=== PATIENT | female | born 1985 | race African-American/Black ===

== ENCOUNTER → 2020-08-13 | Day surgery (SDC) | payer OTHER ==
[~2020-08-13] MED LIST: SODIUM CHLORIDE 1,000 ML IV ONE
[2020-08-13 17:39] VITALS: PULSE 65
[2020-08-13 17:41] VITALS: BP 116/77
[2020-08-13 17:44] VITALS: TEMP 98.5
[2020-08-13 18:21] LABS: POTASSIUM 3.6 mmol/L (3.5-5.1)
[2020-08-13 18:23] LABS: BLOOD UREA NITROGEN 10.6 mg/dL (7-18); MAGNESIUM 2.1 mg/dL (1.8-2.4)
[2020-08-13 18:26] LABS: CREATININE 0.6 mg/dL (0.55-1.3)
== END | disposition home or self-care (01) ==
LOC: JONCCHEMO 07:08
PROVIDERS: ATTEND Internal Medicine Hematology & Oncology
PROC: 3E0437Z Introduction of Electrolytic and Water Balance Substance into Central Vein, Percutaneous Approach (ICD-10-PCS; principal; 2020-08-13)
DX: C16.9 Malignant neoplasm of stomach, unspecified (principal); Z76.89 Persons encountering health services in other specified circumstances
CPT/HCPCS: 36415; 80048; 83735; 96360

== ENCOUNTER 2020-08-14 07:20 | Day surgery (SDC) | payer OTHER ==
[2020-08-14] MEDS ORDERED: TBO-FILGRASTIM 300 MCG/0.5 ML DISP.SYRINGE SQ ONE (10:00)
[2020-08-14 16:04] VITALS: BP 113/77; PULSE 65; TEMP 99
== END 2020-08-14 14:30 | disposition home or self-care (01) ==
LOC: JONCCHEMO 07:20
PROVIDERS: ATTEND Internal Medicine Hematology & Oncology
PROC: 3E0437Z Introduction of Electrolytic and Water Balance Substance into Central Vein, Percutaneous Approach (ICD-10-PCS; principal; 2020-08-14)
DX: C16.9 Malignant neoplasm of stomach, unspecified (principal); Z76.89 Persons encountering health services in other specified circumstances
CPT/HCPCS: 96360; J1447

== ENCOUNTER 2020-08-15 06:05 | Day surgery (SDC) | payer OTHER ==
[2020-08-15] MEDS ORDERED: TBO-FILGRASTIM 300 MCG/0.5 ML DISP.SYRINGE SQ ONE (10:00)
[2020-08-15 15:18] VITALS: BP 118/76; PULSE 58; TEMP 98.4
== END 2020-08-15 14:35 | disposition home or self-care (01) ==
LOC: JONCCHEMO 06:05
PROVIDERS: ATTEND Internal Medicine Hematology & Oncology
PROC: 3E013GC Introduction of Other Therapeutic Substance into Subcutaneous Tissue, Percutaneous Approach (ICD-10-PCS; principal; 2020-08-15)
DX: C16.9 Malignant neoplasm of stomach, unspecified (principal); Z76.89 Persons encountering health services in other specified circumstances
CPT/HCPCS: 96372; J1447

== ENCOUNTER 2020-08-16 07:19 | Day surgery (SDC) | payer OTHER ==
[2020-08-16] MEDS ORDERED: TBO-FILGRASTIM 300 MCG/0.5 ML DISP.SYRINGE SQ ONE (14:45)
[2020-08-16 15:00] VITALS: BP 124/76; PULSE 92; TEMP 99.2
== END 2020-08-16 14:55 | disposition home or self-care (01) ==
LOC: JONCCHEMO 07:19
PROVIDERS: ATTEND Internal Medicine Hematology & Oncology
PROC: 3E013GC Introduction of Other Therapeutic Substance into Subcutaneous Tissue, Percutaneous Approach (ICD-10-PCS; principal; 2020-08-16)
DX: C16.9 Malignant neoplasm of stomach, unspecified (principal); Z76.89 Persons encountering health services in other specified circumstances
CPT/HCPCS: 96372; J1447

== ENCOUNTER 2020-08-17 13:54 | Day surgery (SDC) | payer OTHER ==
[2020-08-17] MEDS ORDERED: TBO-FILGRASTIM 300 MCG/0.5 ML DISP.SYRINGE SQ ONE (14:00)
[2020-08-17 15:36] VITALS: BP 116/62; PULSE 89; TEMP 98.8
== END 2020-08-17 14:30 | disposition home or self-care (01) ==
LOC: JONCCHEMO 13:54 → J7W 13:54 → JONCCHEMO 14:30
PROVIDERS: ATTEND Internal Medicine Hematology & Oncology
PROC: 3E013GC Introduction of Other Therapeutic Substance into Subcutaneous Tissue, Percutaneous Approach (ICD-10-PCS; principal; 2020-08-17)
DX: C16.9 Malignant neoplasm of stomach, unspecified (principal); Z76.89 Persons encountering health services in other specified circumstances
CPT/HCPCS: 96372; J1447

== ENCOUNTER 2020-08-19 09:34 | Day surgery (SDC) | payer OTHER ==
[~2020-08-19 09:34] MED LIST changes: -SODIUM CHLORIDE 1,000 ML IV ONE; +TBO-FILGRASTIM 300 MCG/0.5 ML DISP.SYRINGE SQ ONE
[2020-08-19 14:15] LABS: BASO % 0.3 % (0-2.0); EOS % 0.5 % (0-4.5); HEMATOCRIT 36.5 % (32.4-45.2); HEMOGLOBIN 12.4 GM/dL (10.7-15.3); LYMPH % 22.4 % (8-40); MCH 30.2 pg (25.7-33.7); MEAN CELL VOLUME 88.8 fl (80-96); MEAN PLT VOLUME 8.7 fl (7.5-11.1); MONO % 21.1 % (3.8-10.2); NEUT % 55.7 % (42.8-82.8); PLATELET COUNT 259 K/MM3 (134-434); RBC 4.11 M/mm3 (3.60-5.2); RDW 13.4 % (11.6-15.6); WHITE BLOOD COUNT 8.6 K/mm3 (4.0-10.0)
[2020-08-19 14:29] LABS: POTASSIUM 3.6 mmol/L (3.5-5.1)
[2020-08-19 14:31] LABS: BLOOD UREA NITROGEN 11.1 mg/dL (7-18); CALCIUM 9.1 mg/dL (8.5-10.1)
[2020-08-19 14:34] LABS: CREATININE 0.8 mg/dL (0.55-1.3)
[2020-08-19 14:36] LABS: BILIRUBIN,TOTAL 0.2 mg/dL (0.2-1); TOT PROT 7.4 g/dl (6.4-8.2)
[2020-08-19 15:27] LABS: ANISOCYTOSIS 0; MACROCYTOSIS 0; PLATELET ESTIMATE NORMAL
[2020-08-19 18:36] VITALS: BP 113/79; PULSE 109; TEMP 98.8
== END 2020-08-19 14:00 | disposition home or self-care (01) ==
LOC: JONCCHEMO 09:34
PROVIDERS: ATTEND Internal Medicine Hematology & Oncology
PROC: 3E013GC Introduction of Other Therapeutic Substance into Subcutaneous Tissue, Percutaneous Approach (ICD-10-PCS; principal; 2020-08-19)
DX: C16.9 Malignant neoplasm of stomach, unspecified (principal); Z76.89 Persons encountering health services in other specified circumstances
CPT/HCPCS: 36415; 80053; 85025; 96372; J1447

== ENCOUNTER 2020-08-26 07:10 | Day surgery (SDC) | payer OTHER ==
[2020-08-26 09:53] LABS: BASO % 0.5 % (0-2.0); HEMATOCRIT 39.1 % (32.4-45.2); HEMOGLOBIN 13.1 GM/dL (10.7-15.3); LYMPH % 14.7 % (8-40); MCH 29.5 pg (25.7-33.7); MCHC 33.5 g/dl (32.0-36.0); MEAN CELL VOLUME 87.9 fl (80-96); MEAN PLT VOLUME 8.4 fl (7.5-11.1); MONO % 2.4 % (3.8-10.2); NEUT % 82.4 % (42.8-82.8); PLATELET COUNT 232 K/MM3 (134-434); RBC 4.45 M/mm3 (3.60-5.2); RDW 13.8 % (11.6-15.6); WHITE BLOOD COUNT 6.5 K/mm3 (4.0-10.0)
[2020-08-26] MEDS ORDERED: PALONOSETRON HCL 0.25 MG/5 ML VIAL IVPUSH ONE (10:00)
[2020-08-26] MEDS ORDERED: FOSAPREPITANT DIMEGLUMINE 150 MG in SODIUM CHLORIDE 150 ML IVPB ONE (10:00)
[2020-08-26] MEDS ORDERED: DEXAMETHASONE SODIUM PHOSPHATE 10 MG in SODIUM CHLORIDE 50 ML IVPB ONE (10:00)
[2020-08-26 10:02] LABS: ALBUMIN 3.9 g/dl (3.4-5.0); BLOOD UREA NITROGEN 17.6 mg/dL (7-18); CALCIUM 9.4 mg/dL (8.5-10.1); MAGNESIUM 2.5 mg/dL (1.8-2.4)
[2020-08-26 10:06] LABS: CREATININE 0.8 mg/dL (0.55-1.3)
[2020-08-26 10:07] LABS: TOT PROT 7.7 g/dl (6.4-8.2)
[2020-08-26 10:16] LABS: BILIRUBIN,TOTAL 0.2 mg/dL (0.2-1)
[2020-08-26] MEDS ORDERED: SODIUM CHLORIDE IV ONE (10:30)
[2020-08-26] MEDS ORDERED: DOCETAXEL IV ONE (10:30)
[2020-08-26] MEDS ORDERED: LEUCOVORIN IVPB ONE (11:30)
[2020-08-26] MEDS ORDERED: WATER IVPB ONE (11:30)
[2020-08-26] MEDS ORDERED: DEXTROSE 5% IVPB ONE (11:30)
[2020-08-26] MEDS ORDERED: SODIUM CHLORIDE 500 ML IV STA (11:34)
[2020-08-26] MEDS ORDERED: FLUOROURACIL 4,500 MG in SODIUM CHLORIDE 2 ML CP ONE (13:30)
[2020-08-26 14:54] VITALS: BP 111/74; PULSE 81; TEMP 99.4
== END 2020-08-26 16:33 | disposition home or self-care (01) ==
LOC: JONCCHEMO 07:10
PROVIDERS: ATTEND Internal Medicine Hematology & Oncology
DX: Z51.11 Encounter for antineoplastic chemotherapy (principal); C16.9 Malignant neoplasm of stomach, unspecified
CPT/HCPCS: 36415; 80053; 83735; 85025; 96361; 96366; 96367; 96375; 96413; 96415; 96417; G0498; J1453; J2469; J9171; J9263

== ENCOUNTER 2020-09-09 05:30 | Day surgery (SDC) | payer OTHER ==
[2020-09-09] MEDS ORDERED: FOSAPREPITANT DIMEGLUMINE 150 MG in SODIUM CHLORIDE 150 ML IVPB ONE (10:00)
[2020-09-09] MEDS ORDERED: DEXAMETHASONE SODIUM PHOSPHATE 10 MG in SODIUM CHLORIDE 50 ML IVPB ONE (10:00)
[2020-09-09] MEDS ORDERED: PALONOSETRON HCL 0.25 MG/5 ML VIAL IVPUSH ONE (10:00)
[2020-09-09] MEDS ORDERED: SODIUM CHLORIDE 500 ML IV ONE (10:00)
[2020-09-09 10:07] LABS: BASO % 0.4 % (0-2.0); EOS % 0.2 % (0-4.5); HEMATOCRIT 35.2 % (32.4-45.2); HEMOGLOBIN 11.8 GM/dL (10.7-15.3); LYMPH % 30.4 % (8-40); MCH 29.3 pg (25.7-33.7); MCHC 33.6 g/dl (32.0-36.0); MEAN CELL VOLUME 87.2 fl (80-96); MEAN PLT VOLUME 8.4 fl (7.5-11.1); MONO % 7.5 % (3.8-10.2); NEUT % 61.5 % (42.8-82.8); PLATELET COUNT 236 K/MM3 (134-434); RBC 4.04 M/mm3 (3.60-5.2); RDW 14.1 % (11.6-15.6); WHITE BLOOD COUNT 7.4 K/mm3 (4.0-10.0)
[2020-09-09 10:24] LABS: POTASSIUM 3.7 mmol/L (3.5-5.1)
[2020-09-09 10:27] LABS: ALBUMIN 3.8 g/dl (3.4-5.0); BLOOD UREA NITROGEN 11.2 mg/dL (7-18); MAGNESIUM 2.3 mg/dL (1.8-2.4)
[2020-09-09 10:30] LABS: CREATININE 0.8 mg/dL (0.55-1.3)
[2020-09-09] MEDS ORDERED: DOCETAXEL IV ONE (10:30)
[2020-09-09] MEDS ORDERED: SODIUM CHLORIDE IV ONE (10:30)
[2020-09-09 10:31] LABS: BILIRUBIN,TOTAL 0.2 mg/dL (0.2-1)
[2020-09-09 10:53] LABS: ANISOCYTOSIS 0; MACROCYTOSIS 0; PLATELET ESTIMATE NORMAL
[2020-09-09] MEDS ORDERED: WATER IVPB ONE (11:30)
[2020-09-09] MEDS ORDERED: DEXTROSE 5% IVPB ONE (11:30)
[2020-09-09] MEDS ORDERED: OXALIPLATIN 145 MG in DEXTROSE 5%-WATER - 500 ML IV ONE (11:30)
[2020-09-09] MEDS ORDERED: LEUCOVORIN IVPB ONE (11:30)
[2020-09-09] MEDS ORDERED: FLUOROURACIL CP ONE (13:30)
[2020-09-09] MEDS ORDERED: SODIUM CHLORIDE CP ONE (13:30)
[2020-09-09 16:20] VITALS: TEMP 99
[2020-09-09 16:22] VITALS: BP 111/73; PULSE 77
== END 2020-09-09 16:15 | disposition home or self-care (01) ==
LOC: JONCCHEMO 05:30
PROVIDERS: ATTEND Internal Medicine Hematology & Oncology
DX: Z51.11 Encounter for antineoplastic chemotherapy (principal); C16.9 Malignant neoplasm of stomach, unspecified
CPT/HCPCS: 36415; 80053; 83735; 85025; 96361; 96366; 96367; 96375; 96413; 96415; 96417; G0498; J1453; J2469; J9171; J9263

== ENCOUNTER 2020-09-23 06:28 | Day surgery (SDC) | payer OTHER ==
[2020-09-23] MEDS ORDERED: SODIUM CHLORIDE 500 ML IV ONE (09:00)
[2020-09-23 09:24] LABS: BASO % 0.5 % (0-2.0); HEMATOCRIT 34.7 % (32.4-45.2); HEMOGLOBIN 11.6 GM/dL (10.7-15.3); LYMPH % 16.8 % (8-40); MCH 29.1 pg (25.7-33.7); MCHC 33.4 g/dl (32.0-36.0); MEAN CELL VOLUME 87.1 fl (80-96); MEAN PLT VOLUME 7.7 fl (7.5-11.1); MONO % 7.2 % (3.8-10.2); NEUT % 75.5 % (42.8-82.8); PLATELET COUNT 232 K/MM3 (134-434); RBC 3.98 M/mm3 (3.60-5.2); WHITE BLOOD COUNT 4.5 K/mm3 (4.0-10.0)
[2020-09-23] MEDS ORDERED: FOSAPREPITANT DIMEGLUMINE 150 MG in SODIUM CHLORIDE 150 ML IVPB ONE (09:30)
[2020-09-23] MEDS ORDERED: PALONOSETRON HCL 0.25 MG/5 ML VIAL IVPUSH ONE (09:30)
[2020-09-23] MEDS ORDERED: DEXAMETHASONE SODIUM PHOSPHATE 10 MG in SODIUM CHLORIDE 50 ML IVPB ONE (09:30)
[2020-09-23 09:52] LABS: POTASSIUM 4.2 mmol/L (3.5-5.1)
[2020-09-23 09:54] LABS: ALBUMIN 3.8 g/dl (3.4-5.0); BLOOD UREA NITROGEN 13.5 mg/dL (7-18); CALCIUM 9.2 mg/dL (8.5-10.1)
[2020-09-23 09:57] LABS: CREATININE 0.7 mg/dL (0.55-1.3)
[2020-09-23 09:59] LABS: BILIRUBIN,TOTAL 0.2 mg/dL (0.2-1)
[2020-09-23] MEDS ORDERED: SODIUM CHLORIDE IV ONE (10:00)
[2020-09-23] MEDS ORDERED: DOCETAXEL IV ONE (10:00)
[2020-09-23] MEDS ORDERED: LEUCOVORIN IVPB ONE (11:00)
[2020-09-23] MEDS ORDERED: OXALIPLATIN 145 MG in DEXTROSE 5%-WATER - 500 ML IV ONE (11:00)
[2020-09-23] MEDS ORDERED: WATER IVPB ONE (11:00)
[2020-09-23] MEDS ORDERED: DEXTROSE 5% IVPB ONE (11:00)
[2020-09-23 12:50] LABS: ANISOCYTOSIS 0; MACROCYTOSIS 0; PLATELET ESTIMATE NORMAL
[2020-09-23] MEDS ORDERED: SODIUM CHLORIDE CP ONE (13:00)
[2020-09-23] MEDS ORDERED: FLUOROURACIL CP ONE (13:00)
[2020-09-23 16:30] VITALS: TEMP 98.7
[2020-09-24 09:48] VITALS: BP 134/82; PULSE 110
== END 2020-09-23 16:00 | disposition home or self-care (01) ==
LOC: JONCCHEMO 06:28
PROVIDERS: ATTEND Student in an Organized Health Care Education/Training Program
PROC: 3E04305 Introduction of Other Antineoplastic into Central Vein, Percutaneous Approach (ICD-10-PCS; principal; 2020-09-23)
PROC: 3E04305 Introduction of Other Antineoplastic into Central Vein, Percutaneous Approach (ICD-10-PCS; 2020-09-23)
PROC: 3E043GC Introduction of Other Therapeutic Substance into Central Vein, Percutaneous Approach (ICD-10-PCS; 2020-09-23)
PROC: 3E0437Z Introduction of Electrolytic and Water Balance Substance into Central Vein, Percutaneous Approach (ICD-10-PCS; 2020-09-23)
DX: Z51.11 Encounter for antineoplastic chemotherapy (principal); C16.9 Malignant neoplasm of stomach, unspecified
CPT/HCPCS: 36415; 80053; 82607; 82728; 83540; 83550; 83735; 85025; 96361; 96368; 96375; 96413; 96415; 96417; G0498; J1453; J2469; J9171; J9263

== ENCOUNTER 2020-09-25 06:11 | Day surgery (SDC) | payer OTHER ==
[2020-09-24 18:19] VITALS: BP 133/92; TEMP 99.2
[2020-09-25] MEDS ORDERED: PORTA CATH FLUSH 10 ML IVPUSH ONE (15:51)
[2020-09-25 15:52] VITALS: PULSE 87
== END 2020-09-25 09:15 | disposition home or self-care (01) ==
LOC: JONCNONCHE 06:11
PROVIDERS: ATTEND Internal Medicine Hematology & Oncology
PROC: 2W54XYZ Removal of Other Device on Chest Wall (ICD-10-PCS; principal; 2020-09-25)
DX: Z53.8 Procedure and treatment not carried out for other reasons (principal)

== ENCOUNTER 2020-12-18 07:24 | Day surgery (SDC) | payer OTHER ==
[~2020-12-18 07:24] MED LIST changes: +SODIUM CHLORIDE 500 ML IV ONE; -TBO-FILGRASTIM 300 MCG/0.5 ML DISP.SYRINGE SQ ONE
[2020-12-18] MEDS ORDERED: SODIUM CHLORIDE 500 ML IV ONE (10:00)
[2020-12-18] MEDS ORDERED: FOSAPREPITANT DIMEGLUMINE 150 MG in SODIUM CHLORIDE 150 ML IVPB ONE (10:00)
[2020-12-18] MEDS ORDERED: PALONOSETRON HCL 0.25 MG/5 ML VIAL IVPUSH ONE (10:00)
[2020-12-18] MEDS ORDERED: DEXAMETHASONE SODIUM PHOSPHATE 10 MG in SODIUM CHLORIDE 50 ML IVPB ONE (10:00)
[2020-12-18 10:12] LABS: BASO % 0.4 % (0-2.0); EOS % 0.1 % (0-4.5); HEMATOCRIT 37.5 % (32.4-45.2); HEMOGLOBIN 12.5 GM/dL (10.7-15.3); LYMPH % 16.2 % (8-40); MCH 28.4 pg (25.7-33.7); MCHC 33.4 g/dl (32.0-36.0); MEAN CELL VOLUME 85.1 fl (80-96); MEAN PLT VOLUME 7.8 fl (7.5-11.1); MONO % 3.3 % (3.8-10.2); PLATELET COUNT 400 K/MM3 (134-434); RDW 16.2 % (11.6-15.6); WHITE BLOOD COUNT 6.1 K/mm3 (4.0-10.0)
[2020-12-18] MEDS ORDERED: DOCETAXEL IV ONE ×2 (10:30→12:00)
[2020-12-18] MEDS ORDERED: SODIUM CHLORIDE IV ONE ×2 (10:30→12:00)
[2020-12-18 10:31] LABS: POTASSIUM 3.9 mmol/L (3.5-5.1)
[2020-12-18 10:33] LABS: ALBUMIN 4.1 g/dl (3.4-5.0); BLOOD UREA NITROGEN 8.7 mg/dL (7-18); CALCIUM 10.2 mg/dL (8.5-10.1)
[2020-12-18 10:37] LABS: CREATININE 0.9 mg/dL (0.55-1.3)
[2020-12-18 10:38] LABS: BILIRUBIN,TOTAL 0.2 mg/dL (0.2-1); TOT PROT 7.9 g/dl (6.4-8.2)
[2020-12-18] MEDS ORDERED: SODIUM CHLORIDE 500 ML IV STA (10:42)
[2020-12-18] MEDS ORDERED: LEUCOVORIN IVPB ONE ×2 (11:30→12:00)
[2020-12-18] MEDS ORDERED: OXALIPLATIN 145 MG in DEXTROSE 5%-WATER - 500 ML IV ONE ×2 (11:30→12:00)
[2020-12-18] MEDS ORDERED: WATER IVPB ONE ×2 (11:30→12:00)
[2020-12-18] MEDS ORDERED: DEXTROSE 5% IVPB ONE ×2 (11:30→12:00)
[2020-12-18] MEDS ORDERED: SODIUM CHLORIDE CP ONE ×2 (13:30→14:00)
[2020-12-18] MEDS ORDERED: FLUOROURACIL CP ONE ×2 (13:30→14:00)
[2020-12-18 16:16] VITALS: TEMP 98.7
[2020-12-18 17:29] VITALS: BP 119/80; PULSE 59
[2020-12-19 13:07] LABS: HEP B CORE AB, TOT Negative (Negative)
== END 2020-12-18 17:30 | disposition home or self-care (01) ==
LOC: JONCCHEMO 07:24
PROVIDERS: ATTEND Internal Medicine Hematology & Oncology
DX: Z51.11 Encounter for antineoplastic chemotherapy (principal); C16.9 Malignant neoplasm of stomach, unspecified
CPT/HCPCS: 36415; 80053; 85025; 86704; 86706; 86707; 86708; 86709; 87340; 96361; 96367; 96375; 96413; 96415; 96417; G0498; J1453; J2469; J9171; J9263

== ENCOUNTER 2020-12-19 07:36 | Day surgery (SDC) | payer OTHER ==
[~2020-12-19 07:36] MED LIST changes: +DEXAMETHASONE SODIUM PHOSPHATE 10 MG in SODIUM CHLORIDE 50 ML IVPB ONE; +DEXTROSE 5% IVPB ONE; +DOCETAXEL IV ONE; +FLUOROURACIL CP ONE; +FOSAPREPITANT DIMEGLUMINE 150 MG in SODIUM CHLORIDE 145 ML IVPB ONE; +LEUCOVORIN IVPB ONE; +OXALIPLATIN 145 MG in DEXTROSE 5%-WATER - 500 ML IV ONE; +PALONOSETRON HCL 0.25 MG/5 ML VIAL IVPUSH ONE; +SODIUM CHLORIDE CP ONE; +SODIUM CHLORIDE IV ONE; +WATER IVPB ONE
[2020-12-19] MEDS ORDERED: SODIUM CHLORIDE 500 ML IV ONE (10:00)
[2020-12-19 15:09] VITALS: TEMP 98.5
[2020-12-19 15:11] VITALS: BP 135/90; PULSE 78
== END 2020-12-19 15:12 | disposition home or self-care (01) ==
LOC: JONCNONCHE 07:36
PROVIDERS: ATTEND Internal Medicine Hematology & Oncology
DX: Z51.11 Encounter for antineoplastic chemotherapy (principal); C16.9 Malignant neoplasm of stomach, unspecified
CPT/HCPCS: 96361; 96366; 96367; 96375; 96413; 96415; 96417; G0498

== ENCOUNTER 2021-01-08 06:47 | Day surgery (SDC) | payer OTHER ==
[2021-01-08 08:36] LABS: BASO % 0.1 % (0-2.0); HEMATOCRIT 34.8 % (32.4-45.2); HEMOGLOBIN 11.9 GM/dL (10.7-15.3); MCH 28.6 pg (25.7-33.7); MCHC 34.3 g/dl (32.0-36.0); MEAN CELL VOLUME 83.6 fl (80-96); MONO % 5.3 % (3.8-10.2); NEUT % 67.6 % (42.8-82.8); PLATELET COUNT 366 K/MM3 (134-434); RBC 4.16 M/mm3 (3.60-5.2); RDW 15.8 % (11.6-15.6); WHITE BLOOD COUNT 4.3 K/mm3 (4.0-10.0)
[2021-01-08 08:53] LABS: POTASSIUM 3.7 mmol/L (3.5-5.1)
[2021-01-08 08:55] LABS: CALCIUM 10.1 mg/dL (8.5-10.1)
[2021-01-08 08:56] LABS: ALBUMIN 4.1 g/dl (3.4-5.0); BLOOD UREA NITROGEN 11.2 mg/dL (7-18)
[2021-01-08 09:00] LABS: BILIRUBIN,TOTAL 0.3 mg/dL (0.2-1); TOT PROT 7.5 g/dl (6.4-8.2)
[2021-01-08] MEDS ORDERED: SODIUM CHLORIDE 1,000 ML IV STA (09:29)
[2021-01-08] MEDS ORDERED: SODIUM CHLORIDE 500 ML IV ONE (10:00)
[2021-01-08] MEDS ORDERED: FOSAPREPITANT DIMEGLUMINE 150 MG in SODIUM CHLORIDE 150 ML IVPB ONE (10:00)
[2021-01-08] MEDS ORDERED: PALONOSETRON HCL 0.25 MG/5 ML VIAL IVPUSH ONE (10:00)
[2021-01-08] MEDS ORDERED: DEXAMETHASONE SODIUM PHOSPHATE 10 MG in SODIUM CHLORIDE 50 ML IVPB ONE (10:00)
[2021-01-08] MEDS ORDERED: SODIUM CHLORIDE IV ONE (10:30)
[2021-01-08] MEDS ORDERED: DOCETAXEL IV ONE (10:30)
[2021-01-08] MEDS ORDERED: OXALIPLATIN 140 MG in DEXTROSE 5%-WATER - 500 ML IV ONE (11:30)
[2021-01-08] MEDS ORDERED: LEUCOVORIN IVPB ONE (11:30)
[2021-01-08] MEDS ORDERED: WATER IVPB ONE (11:30)
[2021-01-08] MEDS ORDERED: DEXTROSE 5% IVPB ONE (11:30)
[2021-01-08] MEDS ORDERED: FLUOROURACIL CP ONE (13:30)
[2021-01-08] MEDS ORDERED: SODIUM CHLORIDE CP ONE (13:30)
[2021-01-08 17:36] VITALS: BP 136/84; PULSE 69
[2021-01-08] MEDS ORDERED: PORTA CATH FLUSH 10 ML IVPUSH ONE (17:36)
[2021-01-08 17:42] VITALS: TEMP 98.6
== END 2021-01-08 16:35 | disposition home or self-care (01) ==
LOC: JONCCHEMO 06:47
PROVIDERS: ATTEND Internal Medicine Hematology & Oncology
DX: Z51.11 Encounter for antineoplastic chemotherapy (principal); C16.9 Malignant neoplasm of stomach, unspecified
CPT/HCPCS: 36415; 80053; 85025; 96361; 96366; 96367; 96375; 96413; 96415; 96417; G0498; J1453; J2469; J9171; J9263

== ENCOUNTER 2021-01-09 15:09 | Day surgery (SDC) | payer OTHER ==
[~2021-01-09 15:09] MED LIST changes: -DEXAMETHASONE SODIUM PHOSPHATE 10 MG in SODIUM CHLORIDE 50 ML IVPB ONE; -DEXTROSE 5% IVPB ONE; -DOCETAXEL IV ONE; -FLUOROURACIL CP ONE; -FOSAPREPITANT DIMEGLUMINE 150 MG in SODIUM CHLORIDE 145 ML IVPB ONE; -LEUCOVORIN IVPB ONE; -OXALIPLATIN 145 MG in DEXTROSE 5%-WATER - 500 ML IV ONE; -PALONOSETRON HCL 0.25 MG/5 ML VIAL IVPUSH ONE; -SODIUM CHLORIDE CP ONE; -SODIUM CHLORIDE IV ONE; -WATER IVPB ONE
[2021-01-09 18:07] VITALS: BP 118/72; PULSE 77; TEMP 99.9
== END 2021-01-09 18:09 | disposition home or self-care (01) ==
LOC: JONCNONCHE 15:09
PROVIDERS: ATTEND Internal Medicine Hematology & Oncology
PROC: 3E0437Z Introduction of Electrolytic and Water Balance Substance into Central Vein, Percutaneous Approach (ICD-10-PCS; principal; 2021-01-09)
DX: C16.9 Malignant neoplasm of stomach, unspecified (principal); Z76.89 Persons encountering health services in other specified circumstances
CPT/HCPCS: 87040; 96360; 96361

== ENCOUNTER 2021-01-23 07:23 | Day surgery (SDC) | payer OTHER ==
[2021-01-23] MEDS ORDERED: FOSAPREPITANT DIMEGLUMINE 150 MG in SODIUM CHLORIDE 145 ML IVPB ONE (09:30)
[2021-01-23] MEDS ORDERED: PALONOSETRON HCL 0.25 MG/5 ML VIAL IVPUSH ONE (09:30)
[2021-01-23] MEDS ORDERED: DEXAMETHASONE SODIUM PHOSPHATE 10 MG in SODIUM CHLORIDE 50 ML IVPB ONE (09:30)
[2021-01-23] MEDS ORDERED: DOCETAXEL IV ONE (10:00)
[2021-01-23] MEDS ORDERED: SODIUM CHLORIDE IV ONE (10:00)
[2021-01-23 10:09] LABS: BASO % 0.3 % (0-2.0); HEMATOCRIT 35.1 % (32.4-45.2); HEMOGLOBIN 11.9 GM/dL (10.7-15.3); LYMPH % 24.9 % (8-40); MCH 28.4 pg (25.7-33.7); MCHC 33.9 g/dl (32.0-36.0); MEAN CELL VOLUME 83.6 fl (80-96); MEAN PLT VOLUME 7.6 fl (7.5-11.1); MONO % 5.6 % (3.8-10.2); NEUT % 69.2 % (42.8-82.8); PLATELET COUNT 389 K/MM3 (134-434); RBC 4.19 M/mm3 (3.60-5.2); RDW 17.1 % (11.6-15.6); WHITE BLOOD COUNT 4.8 K/mm3 (4.0-10.0)
[2021-01-23 10:38] LABS: ALBUMIN 4.1 g/dl (3.4-5.0); BLOOD UREA NITROGEN 11.6 mg/dL (7-18); CALCIUM 10.2 mg/dL (8.5-10.1)
[2021-01-23 10:41] LABS: CREATININE 0.9 mg/dL (0.55-1.3)
[2021-01-23 10:43] LABS: BILIRUBIN,TOTAL 0.3 mg/dL (0.2-1)
[2021-01-23] MEDS ORDERED: LEUCOVORIN IVPB ONE (11:00)
[2021-01-23] MEDS ORDERED: WATER IVPB ONE (11:00)
[2021-01-23] MEDS ORDERED: OXALIPLATIN 140 MG in DEXTROSE 5%-WATER - 500 ML IV ONE (11:00)
[2021-01-23] MEDS ORDERED: DEXTROSE 5% IVPB ONE (11:00)
[2021-01-23] MEDS ORDERED: SODIUM CHLORIDE 500 ML IV ONE ×2 (11:30→13:00)
[2021-01-23] MEDS ORDERED: FLUOROURACIL CP ONE (13:00)
[2021-01-23] MEDS ORDERED: SODIUM CHLORIDE CP ONE (13:00)
[2021-01-23 17:21] VITALS: TEMP 98.6
[2021-01-23 17:27] VITALS: BP 116/76; PULSE 70
== END 2021-01-23 17:00 | disposition home or self-care (01) ==
LOC: JONCCHEMO 07:23
PROVIDERS: ATTEND Internal Medicine Hematology & Oncology
DX: Z51.11 Encounter for antineoplastic chemotherapy (principal); C16.9 Malignant neoplasm of stomach, unspecified
CPT/HCPCS: 36415; 80053; 84703; 85025; 96361; 96366; 96367; 96375; 96413; 96415; 96417; G0498; J1453; J2469; J9171; J9263

== ENCOUNTER 2021-01-24 07:20 | Day surgery (SDC) | payer OTHER ==
[2021-01-24 16:53] VITALS: BP 119/73; PULSE 74; TEMP 98.9
[2021-01-24] MEDS ORDERED: PORTA CATH FLUSH 10 ML IVPUSH ONE (16:54)
== END 2021-01-24 16:57 | disposition home or self-care (01) ==
LOC: JONCNONCHE 07:20
PROVIDERS: ATTEND Internal Medicine Hematology & Oncology
DX: Z53.9 Procedure and treatment not carried out, unspecified reason (principal)

== ENCOUNTER 2021-02-06 07:33 | Day surgery (SDC) | payer OTHER ==
[2021-02-06] MEDS ORDERED: SODIUM CHLORIDE 500 ML IV ONE ×2 (08:00→10:00)
[2021-02-06 09:16] LABS: BASO % 0.3 % (0-2.0); HEMATOCRIT 35.6 % (32.4-45.2); HEMOGLOBIN 12.3 GM/dL (10.7-15.3); LYMPH % 19.4 % (8-40); MCH 28.3 pg (25.7-33.7); MCHC 34.4 g/dl (32.0-36.0); MEAN CELL VOLUME 82.3 fl (80-96); MEAN PLT VOLUME 7.4 fl (7.5-11.1); MONO % 3.4 % (3.8-10.2); NEUT % 76.9 % (42.8-82.8); PLATELET COUNT 226 K/MM3 (134-434); RBC 4.33 M/mm3 (3.60-5.2); RDW 17.3 % (11.6-15.6); WHITE BLOOD COUNT 6.1 K/mm3 (4.0-10.0)
[2021-02-06] MEDS ORDERED: FOSAPREPITANT DIMEGLUMINE 150 MG in SODIUM CHLORIDE 145 ML IVPB ONE (09:30)
[2021-02-06] MEDS ORDERED: PALONOSETRON HCL 0.25 MG/5 ML VIAL IVPUSH ONE (09:30)
[2021-02-06] MEDS ORDERED: DEXAMETHASONE SODIUM PHOSPHATE 10 MG in SODIUM CHLORIDE 50 ML IVPB ONE (09:30)
[2021-02-06 09:40] LABS: ALBUMIN 4.3 g/dl (3.4-5.0); CALCIUM 9.2 mg/dL (8.5-10.1)
[2021-02-06 09:41] LABS: BLOOD UREA NITROGEN 6.8 mg/dL (7-18); MAGNESIUM 2.2 mg/dL (1.8-2.4)
[2021-02-06 09:44] LABS: CREATININE 0.9 mg/dL (0.55-1.3)
[2021-02-06 09:45] LABS: BILIRUBIN,TOTAL 0.3 mg/dL (0.2-1)
[2021-02-06] MEDS ORDERED: DOCETAXEL IV ONE (10:00)
[2021-02-06] MEDS ORDERED: SODIUM CHLORIDE IV ONE (10:00)
[2021-02-06] MEDS: SODIUM CHLORIDE 500 ML IV ONE ×2 (10:22→10:38)
[2021-02-06] MEDS ORDERED: DEXTROSE 5% IVPB ONE (11:00)
[2021-02-06] MEDS ORDERED: WATER IVPB ONE (11:00)
[2021-02-06] MEDS ORDERED: OXALIPLATIN 140 MG in DEXTROSE 5%-WATER - 500 ML IV ONE (11:00)
[2021-02-06] MEDS ORDERED: LEUCOVORIN IVPB ONE (11:00)
[2021-02-06] MEDS ORDERED: FLUOROURACIL CP ONE (13:00)
[2021-02-06] MEDS ORDERED: SODIUM CHLORIDE CP ONE (13:00)
[2021-02-06 17:32] VITALS: TEMP 99.5
[2021-02-06 17:35] VITALS: BP 107/75; PULSE 61
== END 2021-02-06 17:30 | disposition home or self-care (01) ==
LOC: JONCCHEMO 07:33
PROVIDERS: ATTEND Internal Medicine Hematology & Oncology
DX: Z51.11 Encounter for antineoplastic chemotherapy (principal); C16.9 Malignant neoplasm of stomach, unspecified
CPT/HCPCS: 36415; 80053; 83735; 85025; 96361; 96366; 96367; 96375; 96413; 96415; 96417; G0498; J1453; J2469; J9171; J9263

== ENCOUNTER 2021-05-02 14:40 | Inpatient (IN) | payer OTHER ==
[2021-05-02] MEDS ORDERED: SODIUM CHLORIDE 0.9% 500 ML INFUS.BAG IV ONE ×2 (16:02→21:24)
[2021-05-02] MEDS ORDERED: ACETAMINOPHEN 1000 MG/100 ML VIAL (NON FORMULARY) IVPB ONE ×2 (16:04→23:42)
[2021-05-02] MEDS ORDERED: ONDANSETRON 4 MG/2 ML VIAL IVPUSH ONE (16:04)
[2021-05-02] MEDS ORDERED: ACETAMINOPHEN INJECTION 100 ML IVPB ONE (16:45)
[2021-05-02 17:16] LABS: BASO % 0.7 % (0-2.0); EOS % 0.1 % (0-4.5); HEMOGLOBIN 16.1 GM/dL (10.7-15.3); LYMPH % 27.8 % (8-40); MCH 29.1 pg (25.7-33.7); MEAN PLT VOLUME 7.6 fl (7.5-11.1); MONO % 14.2 % (3.8-10.2); NEUT % 57.2 % (42.8-82.8); PLATELET COUNT 480 10^3/uL (134-434); RBC 5.54 M/mm3 (3.60-5.2); RDW 15.1 % (11.6-15.6); WHITE BLOOD COUNT 6.4 K/mm3 (4.0-10.0)
[2021-05-02 17:36] LABS: CHLORIDE 90 mmol/L (98-107); SODIUM 129 mmol/L (136-145)
[2021-05-02 17:38] LABS: ALBUMIN 5.3 g/dl (3.4-5.0); CALCIUM 11.2 mg/dL (8.5-10.1)
[2021-05-02 17:39] LABS: ANION GAP 12 MMOL/L (8-16); CO2 27 mmol/L (21-32); GLUCOSE,RANDOM 94 mg/dL (74-106); LIPASE 268 U/L (73-393); MAGNESIUM 2.3 mg/dL (1.8-2.4)
[2021-05-02 17:41] LABS: SGPT/ALT 21 U/L (13-61)
[2021-05-02 17:42] LABS: CREATININE 1.1 mg/dL (0.55-1.3); SGOT/AST 17 U/L (15-37)
[2021-05-02 17:43] LABS: BILIRUBIN,TOTAL 0.5 mg/dL (0.2-1); TOT PROT 9.6 g/dl (6.4-8.2)
[2021-05-02 17:44] LABS: ALK PHOS 79 U/L (45-117)
[2021-05-02] MEDS ORDERED: AMPICILLIN NA/SULBACTAM NA 1.5 GM in SODIUM CHLORIDE 100 ML IVPB ONE (23:31)
[2021-05-03] MEDS ORDERED: ACETAMINOPHEN INJECTION 100 ML IVPB ONE (00:21)
[2021-05-03] MEDS ORDERED: DEXTROSE 5%-0.45% SALINE 1,000 ML IV SCH (02:00)
[2021-05-03] MEDS ORDERED: MORPHINE SULFATE 2 MG/ML VIAL IVPB ONE (02:08)
[2021-05-03] MEDS ORDERED: ACETAMINOPHEN 1000 MG/100 ML VIAL (NON FORMULARY) IVPB PRN (07:00)
[2021-05-03] MEDS ORDERED: D5-NS + 20 MEQ KCL - 20 MEQ/1,000 ML INFUS.BAG IV SCH ×2 (08:30→12:18)
[2021-05-03] MEDS ORDERED: SODIUM CHLORIDE 100 ML IVPB ONE ×3 (08:51→20:31)
[2021-05-03] MEDS ORDERED: AMPICILLIN NA/SULBACTAM NA 1.5 GM VIAL ONE ×3 (08:51→20:30)
[2021-05-03] MEDS: AMPICILLIN NA/SULBACTAM NA 1.5 GM in SODIUM CHLORIDE 100 ML IVPB SCH ×3 (08:57→21:35)
[2021-05-03] MEDS: ENOXAPARIN NA (PORCINE) 40 MG/0.4 ML DISP.SYRIN SQ SCH (09:00)
[2021-05-03 09:12] LABS: BASO % 0.6 % (0-2.0); EOS % 0.4 % (0-4.5); HEMATOCRIT 35.2 % (32.4-45.2); HEMOGLOBIN 12.6 GM/dL (10.7-15.3); LYMPH % 28.3 % (8-40); MCH 29.7 pg (25.7-33.7); MCHC 35.8 g/dl (32.0-36.0); MEAN CELL VOLUME 82.9 fl (80-96); MEAN PLT VOLUME 7.9 fl (7.5-11.1); MONO % 12.6 % (3.8-10.2); NEUT % 58.1 % (42.8-82.8); PLATELET COUNT 379 10^3/uL (134-434); RBC 4.24 M/mm3 (3.60-5.2); RDW 14.6 % (11.6-15.6); WHITE BLOOD COUNT 6.2 K/mm3 (4.0-10.0)
[2021-05-03] MEDS: MORPHINE SULFATE 2 MG/ML VIAL IVPB PRN ×2 (09:16→17:44)
[2021-05-03 09:30] LABS: BLOOD UREA NITROGEN 19.3 mg/dL (7-18)
[2021-05-03 09:33] LABS: CREATININE 0.7 mg/dL (0.55-1.3); PHOSPHOROUS 3.3 mg/dL (2.5-4.9)
[2021-05-03 09:34] LABS: BILIRUBIN,TOTAL 0.4 mg/dL (0.2-1)
[2021-05-03 09:41] LABS: ALBUMIN 3.9 g/dl (3.4-5.0); CALCIUM 9.1 mg/dL (8.5-10.1); TOT PROT 6.8 g/dl (6.4-8.2)
[2021-05-03] MEDS ORDERED: PANTOPRAZOLE SODIUM 40 MG VIAL IVPUSH SCH (10:00)
[2021-05-03] MEDS: ONDANSETRON 4 MG/2 ML VIAL IVPUSH PRN ×2 (10:43→22:58)
[2021-05-03] MEDS ORDERED: MINERAL OIL ENEMA 133 ML ENEMA RC ONE (12:14)
[2021-05-03] MEDS ORDERED: MAG HYDROX/AL HYDROX/SIMETH 30 ML UNIT-DOSE CUP PO PRN (12:16)
[2021-05-03] MEDS: KCL 10 MEQ IVPB 10 MEQ/100 ML INFUS.BAG IVPB SCH ×2 (12:59→15:51)
[2021-05-03] MEDS: SODIUM CHLORIDE 1,000 ML IV SCH (12:59)
[2021-05-03] MEDS ORDERED: POLYETHYLENE GLYCOL 3350 119 GM BTL PO SCH (14:00)
[2021-05-03] MEDS ORDERED: PT OWN MED DRAWER 7, Y5N ONE (14:33)
[2021-05-03] MEDS ORDERED: LIDOCAINE 2.5%/PRILOCAINE 2.5% (5 Gram/TUBE) TP ONE (15:45)
[2021-05-03] MEDS: AMINO ACIDS 4.25%/D5W 1,000 ML IV SCH (17:43)
[2021-05-03 20:32] LABS: PH,URINE 6.5 (5.0-8.0); URINE APPEARANCE CLOUDY; URINE BILIRUBIN NEGATIVE (NEGATIVE); URINE COLOR YELLOW; URINE GLUCOSE (UA) NEGATIVE (NEGATIVE); URINE KETONE 1+ (NEGATIVE); URINE LEUK ESTERASE NEGATIVE (NEGATIVE); URINE NITRITE NEGATIVE (NEGATIVE); URINE PROTEIN TRACE (NEGATIVE)
[2021-05-03] MEDS: PANTOPRAZOLE SODIUM 40 MG VIAL IVPUSH SCH (21:37)
[2021-05-03] MEDS: POLYETHYLENE GLYCOL (HEALTHYLAX) 3350 17 GM PACKET PO SCH (21:37)
[2021-05-04] MEDS ORDERED: SODIUM CHLORIDE 100 ML IVPB ONE ×2 (01:49→08:50)
[2021-05-04] MEDS ORDERED: AMPICILLIN NA/SULBACTAM NA 1.5 GM VIAL ONE ×2 (01:49→08:50)
[2021-05-04] MEDS: AMPICILLIN NA/SULBACTAM NA 1.5 GM in SODIUM CHLORIDE 100 ML IVPB SCH ×3 (03:41→17:31)
[2021-05-04] MEDS: POLYETHYLENE GLYCOL (HEALTHYLAX) 3350 17 GM PACKET PO SCH ×2 (06:16→17:31)
[2021-05-04] MEDS: MORPHINE SULFATE 2 MG/ML VIAL IVPB PRN ×2 (06:22→10:38)
[2021-05-04] MEDS ORDERED: PT OWN MED DRAWER 7, Y5N ONE (09:22)
[2021-05-04 10:02] LABS: CALCIUM 9.4 mg/dL (8.5-10.1)
[2021-05-04 10:03] LABS: ALBUMIN 3.7 g/dl (3.4-5.0); BLOOD UREA NITROGEN 11.7 mg/dL (7-18)
[2021-05-04 10:06] LABS: CREATININE 0.7 mg/dL (0.55-1.3)
[2021-05-04 10:07] LABS: BILIRUBIN,TOTAL 0.4 mg/dL (0.2-1); TOT PROT 6.8 g/dl (6.4-8.2)
[2021-05-04] MEDS: ENOXAPARIN NA (PORCINE) 40 MG/0.4 ML DISP.SYRIN SQ SCH (10:24)
[2021-05-04] MEDS: PANTOPRAZOLE SODIUM 40 MG VIAL IVPUSH SCH (10:24)
[2021-05-04 13:48] VITALS: BMI 16.1
[2021-05-04 15:45] VITALS: BP 132/91; PULSE 68; TEMP 98.9
[2021-05-04] MEDS: AMINO ACIDS 4.25%/D5W 1,000 ML IV SCH (17:30)
[2021-05-04] MEDS: SODIUM CHLORIDE 1,000 ML IV SCH (17:31)
== END 2021-05-04 19:20 | disposition short-term general hospital (02) | DRG 389 ==
LOC: JER 14:40 → JERBED 23:55 → J8W 05-03 01:38
PROVIDERS: ADMIT Internal Medicine; ATTEND Internal Medicine
DX: K56.609 Unspecified intestinal obstruction, unspecified as to partial versus complete obstruction (principal); E87.1 Hypo-osmolality and hyponatremia; Z68.1 Body mass index [BMI] 19.9 or less, adult; E87.3 Alkalosis; E86.0 Dehydration; R62.7 Adult failure to thrive; R11.2 Nausea with vomiting, unspecified; R00.0 Tachycardia, unspecified; K52.9 Noninfective gastroenteritis and colitis, unspecified; K59.00 Constipation, unspecified; Z85.00 Personal history of malignant neoplasm of unspecified digestive organ; K42.9 Umbilical hernia without obstruction or gangrene; Z98.0 Intestinal bypass and anastomosis status; Z90.3 Acquired absence of stomach [part of]
CPT/HCPCS: 36415; 74018-TC-FY; 74176-TC; 74177-TC; 80053; 81003; 82378; 82550; 82607; 82728; 82747; 83540; 83550; 83605; 83690; 83735; 84100; 84484; 84703; 85014; 85025; 86140; 87040; 87086; 93005; 93010; 99285-25; C9803; J0131; Q9967; U0003; U0005

== ENCOUNTER 2021-05-29 12:04 | Emergency (ER) | payer OTHER ==
[2021-05-29 12:47] VITALS: BMI 18.5
[2021-05-29] MEDS ORDERED: SODIUM CHLORIDE 1,000 ML IV STA (13:01)
[2021-05-29] MEDS ORDERED: ACETAMINOPHEN 1000 MG/100 ML VIAL (NON FORMULARY) IVPB ONE (13:28)
[2021-05-29] MEDS ORDERED: ONDANSETRON 4 MG/2 ML VIAL IVPUSH ONE (13:28)
[2021-05-29] MEDS ORDERED: ACETAMINOPHEN INJECTION 100 ML IVPB ONE (14:32)
[2021-05-29] MEDS ORDERED: ONDANSETRON 4 MG/2 ML VIAL ONE (14:32)
[2021-05-29 15:14] LABS: BASO % 0.8 % (0-2.0); EOS % 0.6 % (0-4.5); HEMATOCRIT 29.7 % (32.4-45.2); HEMOGLOBIN 10.1 GM/dL (10.7-15.3); LYMPH % 9.9 % (8-40); MCH 28.9 pg (25.7-33.7); MONO % 4.7 % (3.8-10.2); PLATELET COUNT 463 10^3/uL (134-434); RDW 14.6 % (11.6-15.6); WHITE BLOOD COUNT 12.9 K/mm3 (4.0-10.0)
[2021-05-29 15:36] LABS: ALBUMIN 3.2 g/dl (3.4-5.0); CALCIUM 9.5 mg/dL (8.5-10.1)
[2021-05-29 15:37] LABS: BLOOD UREA NITROGEN 19.5 mg/dL (7-18)
[2021-05-29 15:40] LABS: CREATININE 0.4 mg/dL (0.55-1.3); PHOSPHOROUS 3.9 mg/dL (2.5-4.9)
[2021-05-29 15:41] LABS: BILIRUBIN,TOTAL 0.5 mg/dL (0.2-1); TOT PROT 7.3 g/dl (6.4-8.2)
[2021-05-29] MEDS ORDERED: ONDANSETRON 4 MG TABLET PO ONE (16:38)
[2021-05-29] MEDS ORDERED: ONDANSETRON *ODT* 4 MG TABLET ONE (16:40)
[2021-05-29 16:49] VITALS: BP 109/77; PULSE 83
[2021-05-29 16:55] VITALS: TEMP 99.1
== END 2021-05-29 17:00 | disposition home or self-care (01) ==
LOC: JER 12:04
PROC: 3E0333Z Introduction of Anti-inflammatory into Peripheral Vein, Percutaneous Approach (ICD-10-PCS; principal; 2021-05-29)
PROC: 3E033GC Introduction of Other Therapeutic Substance into Peripheral Vein, Percutaneous Approach (ICD-10-PCS; 2021-05-29)
PROC: 3E0337Z Introduction of Electrolytic and Water Balance Substance into Peripheral Vein, Percutaneous Approach (ICD-10-PCS; 2021-05-29)
DX: E86.0 Dehydration (principal)
CPT/HCPCS: 36415; 80053; 83735; 84100; 85025; 93005; 93010; 99284-25; J0131; Q5117

== ENCOUNTER → 2021-05-29 | Day surgery (SDC) | payer OTHER ==
[~2021-05-29] MED LIST changes: +ATROPINE SO4 0.4 MG/1 ML VIAL IVPUSH ONE; +DEXAMETHASONE SODIUM PHOSPHATE 12 MG in SODIUM CHLORIDE 50 ML IVPB ONE; +DEXTROSE 5% IVPB ONE; +IRINOTECAN HCL IVPB ONE; +PALONOSETRON HCL 0.25 MG/5 ML VIAL IVPUSH ONE; +SODIUM CHLORIDE 1,000 ML IV SCH; +SODIUM CHLORIDE 250 ML IV ONE; -SODIUM CHLORIDE 500 ML IV ONE; +SODIUM CHLORIDE IVPB ONE; +TRASTUZUMAB ANNS IVPB ONE; +WATER IVPB ONE
[2021-05-29 09:26] LABS: BASO % 0.6 % (0-2.0); EOS % 0.8 % (0-4.5); HEMATOCRIT 30.3 % (32.4-45.2); HEMOGLOBIN 10.2 GM/dL (10.7-15.3); LYMPH % 7.8 % (8-40); MCH 28.6 pg (25.7-33.7); MCHC 33.6 g/dl (32.0-36.0); MEAN CELL VOLUME 85.1 fl (80-96); MEAN PLT VOLUME 7.9 fl (7.5-11.1); MONO % 3.6 % (3.8-10.2); NEUT % 87.2 % (42.8-82.8); PLATELET COUNT 504 10^3/uL (134-434); RBC 3.56 M/mm3 (3.60-5.2); RDW 14.7 % (11.6-15.6); WHITE BLOOD COUNT 13.2 K/mm3 (4.0-10.0)
[2021-05-29 09:54] LABS: CALCIUM 9.3 mg/dL (8.5-10.1)
[2021-05-29 09:55] LABS: ALBUMIN 3.2 g/dl (3.4-5.0); BLOOD UREA NITROGEN 22.4 mg/dL (7-18)
[2021-05-29 09:58] LABS: CREATININE 0.5 mg/dL (0.55-1.3)
[2021-05-29 09:59] LABS: BILIRUBIN,TOTAL 0.3 mg/dL (0.2-1); TOT PROT 7.3 g/dl (6.4-8.2)
== END | disposition home or self-care (01) ==
LOC: JONCCHEMO 07:09
PROVIDERS: ATTEND Internal Medicine Hematology & Oncology
DX: Z53.8 Procedure and treatment not carried out for other reasons (principal)
CPT/HCPCS: 36415; 80053; 85025; 93306-TC; Q5117

== ENCOUNTER 2021-05-30 09:11 | Day surgery (SDC) | payer OTHER ==
[2021-05-30] MEDS ORDERED: SODIUM CHLORIDE 1,000 ML IV STA (10:45)
[2021-05-30] MEDS ORDERED: DEXAMETHASONE SODIUM PHOSPHATE 12 MG in SODIUM CHLORIDE 50 ML IVPB ONE (12:00)
[2021-05-30] MEDS ORDERED: PALONOSETRON HCL 0.25 MG/5 ML VIAL IVPUSH ONE (12:00)
[2021-05-30] MEDS ORDERED: ATROPINE SO4 0.4 MG/1 ML VIAL IVPUSH ONE (12:00)
[2021-05-30] MEDS ORDERED: PANTOPRAZOLE SODIUM 40 MG VIAL IVPB ONE ×2 (12:08→12:15)
[2021-05-30] MEDS ORDERED: TRASTUZUMAB ANNS IVPB ONE (12:15)
[2021-05-30] MEDS ORDERED: IRINOTECAN HCL 190 MG in DEXTROSE 5%-WATER - 500 ML IVPB ONE (12:15)
[2021-05-30] MEDS ORDERED: SODIUM CHLORIDE IVPB ONE (12:15)
[2021-05-30 18:21] VITALS: BP 116/71; PULSE 83; TEMP 99.5
[2021-05-30] MEDS ORDERED: PORTA CATH FLUSH 10 ML IVPUSH ONE (18:48)
== END 2021-05-30 18:49 | disposition home or self-care (01) ==
LOC: JONCNONCHE 09:11
PROVIDERS: ATTEND Internal Medicine Hematology & Oncology
PROC: 3E04305 Introduction of Other Antineoplastic into Central Vein, Percutaneous Approach (ICD-10-PCS; principal; 2021-05-30)
PROC: 3E043GC Introduction of Other Therapeutic Substance into Central Vein, Percutaneous Approach (ICD-10-PCS; 2021-05-30)
PROC: 3E0437Z Introduction of Electrolytic and Water Balance Substance into Central Vein, Percutaneous Approach (ICD-10-PCS; 2021-05-30)
DX: Z51.11 Encounter for antineoplastic chemotherapy (principal); C16.9 Malignant neoplasm of stomach, unspecified
CPT/HCPCS: 96361; 96375; 96413; 96417; J2469; J9206; Q5117

== ENCOUNTER 2021-06-02 07:49 | Day surgery (SDC) | payer OTHER ==
[2021-06-02] MEDS ORDERED: MORPHINE SULFATE 2 MG/ML VIAL IVPUSH ONE (12:15)
[2021-06-02] MEDS ORDERED: SODIUM CHLORIDE 1,000 ML IV ONE (12:15)
[2021-06-02] MEDS ORDERED: TBO-FILGRASTIM 300 MCG/0.5 ML DISP.SYRINGE SQ ONE (12:15)
[2021-06-02 12:45] LABS: BASO % 0.9 % (0-2.0); EOS % 1.8 % (0-4.5); HEMATOCRIT 27.6 % (32.4-45.2); HEMOGLOBIN 9.5 GM/dL (10.7-15.3); LYMPH % 22.3 % (8-40); MCH 29.2 pg (25.7-33.7); MCHC 34.5 g/dl (32.0-36.0); MEAN CELL VOLUME 84.7 fl (80-96); MEAN PLT VOLUME 8.1 fl (7.5-11.1); MONO % 6.4 % (3.8-10.2); NEUT % 68.6 % (42.8-82.8); PLATELET COUNT 432 10^3/uL (134-434); RBC 3.26 M/mm3 (3.60-5.2); RDW 14.9 % (11.6-15.6); WHITE BLOOD COUNT 6.7 K/mm3 (4.0-10.0)
[2021-06-02 13:08] LABS: BLOOD UREA NITROGEN 23.3 mg/dL (7-18); MAGNESIUM 2.4 mg/dL (1.8-2.4)
[2021-06-02 13:10] LABS: CREATININE 0.5 mg/dL (0.55-1.3)
[2021-06-02 13:12] LABS: BILIRUBIN,TOTAL 0.2 mg/dL (0.2-1)
[2021-06-02 13:19] LABS: TOT PROT 7.6 g/dl (6.4-8.2)
[2021-06-02 17:01] VITALS: BP 121/81; PULSE 79; TEMP 98.9
== END 2021-06-02 18:12 | disposition home or self-care (01) ==
LOC: JONCCHEMO 07:49
PROVIDERS: ATTEND Internal Medicine Hematology & Oncology
PROC: 3E033NZ Introduction of Analgesics, Hypnotics, Sedatives into Peripheral Vein, Percutaneous Approach (ICD-10-PCS; principal; 2021-06-02)
PROC: 3E0337Z Introduction of Electrolytic and Water Balance Substance into Peripheral Vein, Percutaneous Approach (ICD-10-PCS; 2021-06-02)
PROC: 3E013GC Introduction of Other Therapeutic Substance into Subcutaneous Tissue, Percutaneous Approach (ICD-10-PCS; 2021-06-02)
DX: Z76.89 Persons encountering health services in other specified circumstances (principal); C16.9 Malignant neoplasm of stomach, unspecified
CPT/HCPCS: 36415; 80053; 83735; 85025; J1447

== ENCOUNTER 2021-06-13 06:47 | Day surgery (SDC) | payer OTHER ==
[2021-06-13] MEDS ORDERED: SODIUM CHLORIDE 250 ML IV ONE (09:30)
[2021-06-13] MEDS ORDERED: ATROPINE SO4 0.4 MG/1 ML VIAL SQ ONE (10:00)
[2021-06-13] MEDS ORDERED: DEXAMETHASONE SODIUM PHOSPHATE 12 MG in SODIUM CHLORIDE 50 ML IVPB ONE (10:00)
[2021-06-13] MEDS ORDERED: PALONOSETRON HCL 0.25 MG/5 ML VIAL IVPUSH ONE (10:00)
[2021-06-13] MEDS ORDERED: SODIUM CHLORIDE IVPB ONE (10:30)
[2021-06-13] MEDS ORDERED: TRASTUZUMAB ANNS IVPB ONE (10:30)
[2021-06-13] MEDS ORDERED: WATER IVPB ONE (11:00)
[2021-06-13] MEDS ORDERED: DEXTROSE 5% IVPB ONE (11:00)
[2021-06-13] MEDS ORDERED: IRINOTECAN HCL IVPB ONE (11:00)
[2021-06-13 11:45] LABS: BASO % 0.6 % (0-2.0); EOS % 0.6 % (0-4.5); HEMATOCRIT 31.8 % (32.4-45.2); LYMPH % 23.6 % (8-40); MCH 29.7 pg (25.7-33.7); MCHC 34.7 g/dl (32.0-36.0); MEAN CELL VOLUME 85.6 fl (80-96); MEAN PLT VOLUME 7.9 fl (7.5-11.1); MONO % 6.9 % (3.8-10.2); NEUT % 68.3 % (42.8-82.8); PLATELET COUNT 443 10^3/uL (134-434); RBC 3.72 M/mm3 (3.60-5.2); RDW 14.9 % (11.6-15.6); WHITE BLOOD COUNT 6.3 K/mm3 (4.0-10.0)
[2021-06-13 12:07] LABS: ALBUMIN 3.4 g/dl (3.4-5.0); BLOOD UREA NITROGEN 25.9 mg/dL (7-18); CALCIUM 9.6 mg/dL (8.5-10.1)
[2021-06-13 12:10] LABS: CREATININE 0.6 mg/dL (0.55-1.3)
[2021-06-13 12:11] LABS: BILIRUBIN,TOTAL 0.2 mg/dL (0.2-1)
[2021-06-13] MEDS ORDERED: SODIUM CHLORIDE 1,000 ML IV STA (12:19)
[2021-06-13] MEDS ORDERED: MORPHINE SULFATE 2 MG/ML VIAL IVPB ONE (12:22)
[2021-06-13 14:33] LABS: MAGNESIUM 2.3 mg/dL (1.8-2.4)
[2021-06-13 16:39] VITALS: TEMP 97.9
[2021-06-13 17:08] VITALS: BP 114/78; PULSE 73
== END 2021-06-13 17:08 | disposition home or self-care (01) ==
LOC: JONCCHEMO 06:47
PROVIDERS: ATTEND Internal Medicine Hematology & Oncology
DX: Z51.11 Encounter for antineoplastic chemotherapy (principal); C16.9 Malignant neoplasm of stomach, unspecified; C78.6 Secondary malignant neoplasm of retroperitoneum and peritoneum
CPT/HCPCS: 36415; 80053; 83735; 85025; 96361; 96375; 96413; 96415; 96417; J2469; J9206

== ENCOUNTER 2021-06-27 07:05 | Day surgery (SDC) | payer OTHER ==
[2021-06-27] MEDS ORDERED: SODIUM CHLORIDE 250 ML IV ONE (09:30)
[2021-06-27] MEDS ORDERED: PALONOSETRON HCL 0.25 MG/5 ML VIAL IVPUSH ONE ×2 (10:00→12:00)
[2021-06-27] MEDS ORDERED: DEXAMETHASONE SODIUM PHOSPHATE 10 MG in SODIUM CHLORIDE 50 ML IVPB ONE (10:00)
[2021-06-27 10:13] LABS: HEMATOCRIT 30.3 % (32.4-45.2); HEMOGLOBIN 10.2 GM/dL (10.7-15.3); MCH 28.9 pg (25.7-33.7); MCHC 33.8 g/dl (32.0-36.0); MEAN CELL VOLUME 85.6 fl (80-96); MEAN PLT VOLUME 7.7 fl (7.5-11.1); PLATELET COUNT 400 10^3/uL (134-434); RBC 3.54 M/mm3 (3.60-5.2); RDW 15.6 % (11.6-15.6); WHITE BLOOD COUNT 5.8 K/mm3 (4.0-10.0)
[2021-06-27] MEDS ORDERED: PEMBROLIZUMAB 200 MG in SODIUM CHLORIDE 50 ML IV ONE ×2 (10:30→12:30)
[2021-06-27 10:34] LABS: ALBUMIN 3.4 g/dl (3.4-5.0); BLOOD UREA NITROGEN 25.6 mg/dL (7-18); CALCIUM 9.7 mg/dL (8.5-10.1)
[2021-06-27 10:37] LABS: CREATININE 0.5 mg/dL (0.55-1.3)
[2021-06-27 10:39] LABS: BILIRUBIN,TOTAL 0.3 mg/dL (0.2-1); TOT PROT 7.7 g/dl (6.4-8.2)
[2021-06-27] MEDS ORDERED: SODIUM CHLORIDE IVPB ONE ×2 (11:00→13:00)
[2021-06-27] MEDS ORDERED: TRASTUZUMAB ANNS IVPB ONE ×2 (11:00→13:00)
[2021-06-27 11:31] LABS: PLATELET ESTIMATE NORMAL
[2021-06-27] MEDS ORDERED: SODIUM CHLORIDE 1,000 ML IV ONE (11:45)
[2021-06-27] MEDS ORDERED: MORPHINE SULFATE 2 MG/ML VIAL IVPB ONE (13:13)
[2021-06-27 16:44] VITALS: TEMP 98.7
[2021-06-27 16:52] VITALS: BP 98/58; PULSE 59
== END 2021-06-27 14:45 | disposition home or self-care (01) ==
LOC: JONCNONCHE 07:05
PROVIDERS: ATTEND Internal Medicine Hematology & Oncology
DX: Z51.11 Encounter for antineoplastic chemotherapy (principal); C16.9 Malignant neoplasm of stomach, unspecified; C78.6 Secondary malignant neoplasm of retroperitoneum and peritoneum
CPT/HCPCS: 36415; 80053; 85025; 96361; 96375; 96413; 96417; J2469; J9271; Q5117

== ENCOUNTER 2021-07-16 06:58 | Day surgery (SDC) | payer OTHER ==
[2021-07-16 10:19] LABS: BASO % 0.6 % (0-2.0); EOS % 2.4 % (0-4.5); HEMATOCRIT 31.8 % (32.4-45.2); HEMOGLOBIN 10.8 GM/dL (10.7-15.3); LYMPH % 29.2 % (8-40); MCH 29.3 pg (25.7-33.7); MEAN CELL VOLUME 86.3 fl (80-96); MEAN PLT VOLUME 7.5 fl (7.5-11.1); MONO % 7.7 % (3.8-10.2); NEUT % 60.1 % (42.8-82.8); PLATELET COUNT 452 10^3/uL (134-434); RBC 3.69 M/mm3 (3.60-5.2); RDW 16.4 % (11.6-15.6); WHITE BLOOD COUNT 6.5 K/mm3 (4.0-10.0)
[2021-07-16 10:28] LABS: CALCIUM 9.5 mg/dL (8.5-10.1)
[2021-07-16 10:29] LABS: ALBUMIN 3.4 g/dl (3.4-5.0); BLOOD UREA NITROGEN 25.9 mg/dL (7-18)
[2021-07-16 10:32] LABS: CREATININE 0.6 mg/dL (0.55-1.3)
[2021-07-16 10:34] LABS: TOT PROT 7.9 g/dl (6.4-8.2)
[2021-07-16] MEDS ORDERED: SODIUM CHLORIDE 1,000 ML IV STA (10:57)
[2021-07-16] MEDS ORDERED: morphine CARPU-JECT 2 MG/1 ML DISP.SYRIN IVPUSH ONE (12:00)
[2021-07-16] MEDS ORDERED: morphine SULFATE 4 MG/ML VIAL IVPUSH ONE ×2 (12:15→15:04)
[2021-07-16] MEDS ORDERED: PALONOSETRON HCL 0.25 MG/5 ML VIAL IVPUSH ONE (12:45)
[2021-07-16] MEDS ORDERED: PEMBROLIZUMAB 200 MG in SODIUM CHLORIDE 50 ML IV ONE (13:15)
[2021-07-16] MEDS ORDERED: SODIUM CHLORIDE IVPB ONE (13:45)
[2021-07-16] MEDS ORDERED: TRASTUZUMAB ANNS IVPB ONE (13:45)
[2021-07-16 18:24] VITALS: TEMP 98.2
[2021-07-16 18:26] VITALS: BP 136/93; PULSE 75
== END 2021-07-16 16:30 | disposition home or self-care (01) ==
LOC: JONCCHEMO 06:58
PROVIDERS: ATTEND Internal Medicine Hematology & Oncology
DX: Z51.11 Encounter for antineoplastic chemotherapy (principal); C16.9 Malignant neoplasm of stomach, unspecified; C78.6 Secondary malignant neoplasm of retroperitoneum and peritoneum
CPT/HCPCS: 36415; 80053; 85025; 96361; 96375; 96413; 96417; J2469; J9271; Q5117

== ENCOUNTER 2021-08-06 08:17 | Day surgery (SDC) | payer OTHER ==
[2021-08-06] MEDS ORDERED: SODIUM CHLORIDE 1,000 ML IV ONE (09:00)
[2021-08-06] MEDS ORDERED: PALONOSETRON HCL 0.25 MG/5 ML VIAL IVPUSH ONE (10:30)
[2021-08-06] MEDS ORDERED: PEMBROLIZUMAB 200 MG in SODIUM CHLORIDE 50 ML IV ONE ×2 (11:00→13:15)
[2021-08-06 11:22] LABS: BASO % 1.2 % (0-2.0); EOS % 1.7 % (0-4.5); HEMATOCRIT 23.1 % (32.4-45.2); HEMOGLOBIN 8.1 GM/dL (10.7-15.3); LYMPH % 21.6 % (8-40); MCH 28.2 pg (25.7-33.7); MEAN CELL VOLUME 80.7 fl (80-96); MEAN PLT VOLUME 8.6 fl (7.5-11.1); MONO % 9.4 % (3.8-10.2); NEUT % 66.1 % (42.8-82.8); PLATELET COUNT 259 10^3/uL (134-434); RBC 2.86 M/mm3 (3.60-5.2); RDW 16.8 % (11.6-15.6); WHITE BLOOD COUNT 9.7 K/mm3 (4.0-10.0)
[2021-08-06] MEDS ORDERED: morphine SULFATE 4 MG/ML VIAL IVPUSH ONE (11:30)
[2021-08-06] MEDS ORDERED: TRASTUZUMAB ANNS IVPB ONE ×2 (11:30→13:45)
[2021-08-06] MEDS ORDERED: SODIUM CHLORIDE IVPB ONE ×2 (11:30→13:45)
[2021-08-06 11:49] LABS: ALBUMIN 2.3 g/dl (3.4-5.0); CALCIUM 9.3 mg/dL (8.5-10.1)
[2021-08-06 11:50] LABS: BLOOD UREA NITROGEN 18.4 mg/dL (7-18)
[2021-08-06 11:53] LABS: CREATININE 0.5 mg/dL (0.55-1.3)
[2021-08-06 11:54] LABS: BILIRUBIN,TOTAL 0.5 mg/dL (0.2-1); TOT PROT 7.3 g/dl (6.4-8.2)
[2021-08-06] MEDS ORDERED: KCL 10 MEQ IVPB 10 MEQ/100 ML INFUS.BAG IVPB SCH (12:30)
[2021-08-06] MEDS ORDERED: DEXAMETHASONE SOD PHOSPHATE 20 MG/5 ML VIAL IVPB ONE (14:05)
[2021-08-06] MEDS: POTASSIUM CHLORIDE 10 MEQ PREMIX IVPB (POTASSIUM RIDER) IVPB SCH ×3 (14:10→17:22)
[2021-08-06] MEDS ORDERED: DEXAMETHASONE SODIUM PHOSPHATE 6 MG in SODIUM CHLORIDE 50 ML IVPB ONE (14:15)
[2021-08-06 17:20] VITALS: TEMP 98.8
[2021-08-06] MEDS ORDERED: PORTA CATH FLUSH 10 ML IVPUSH ONE ×3 (17:20→18:54)
[2021-08-06 18:54] VITALS: BP 106/64; PULSE 9
== END 2021-08-06 19:02 | disposition home or self-care (01) ==
LOC: JONCCHEMO 08:17
PROVIDERS: ATTEND Internal Medicine Hematology & Oncology
DX: Z51.11 Encounter for antineoplastic chemotherapy (principal); C16.9 Malignant neoplasm of stomach, unspecified; C78.6 Secondary malignant neoplasm of retroperitoneum and peritoneum
CPT/HCPCS: 36415; 80053; 84155; 84165; 84439; 84443; 85025; 87040; 87086; 87106; 96361; 96366; 96367; 96375; 96413; 96417; J2469; J9271; Q5117

== ENCOUNTER 2021-08-10 14:14 | Inpatient (IN) | payer OTHER ==
[2021-08-10] MEDS ORDERED: METOCLOPRAMIDE HCL INJECTION 10 MG/2 ML VIAL IVPUSH ONE (15:40)
[2021-08-10] MEDS ORDERED: morphine CARPU-JECT 4 MG/1 ML DISP.SYRIN IVPUSH ONE ×2 (15:43→19:55)
[2021-08-10] MEDS ORDERED: SODIUM CHLORIDE 1,000 ML IV ONE (15:44)
[2021-08-10 17:08] LABS: BASO % 1.2 % (0-2.0); EOS % 1.5 % (0-4.5); HEMATOCRIT 24.1 % (32.4-45.2); HEMOGLOBIN 8.2 GM/dL (10.7-15.3); LYMPH % 41.8 % (8-40); MCH 27.8 pg (25.7-33.7); MCHC 34.3 g/dl (32.0-36.0); MONO % 5.3 % (3.8-10.2); NEUT % 50.2 % (42.8-82.8); PLATELET COUNT 288 10^3/uL (134-434); RBC 2.97 M/mm3 (3.60-5.2); WHITE BLOOD COUNT 5.9 K/mm3 (4.0-10.0)
[2021-08-10] MEDS ORDERED: morphine SULFATE 4 MG/ML VIAL ONE ×2 (17:26→21:22)
[2021-08-10] MEDS ORDERED: METOCLOPRAMIDE HCL INJECTION 10 MG/2 ML VIAL ONE (17:27)
[2021-08-10 17:28] LABS: CALCIUM 9.4 mg/dL (8.5-10.1)
[2021-08-10 17:29] LABS: ALBUMIN 2.5 g/dl (3.4-5.0); BLOOD UREA NITROGEN 19.3 mg/dL (7-18)
[2021-08-10 17:32] LABS: CREATININE 0.5 mg/dL (0.55-1.3)
[2021-08-10 17:34] LABS: BILIRUBIN,TOTAL 0.5 mg/dL (0.2-1); TOT PROT 7.6 g/dl (6.4-8.2)
[2021-08-10] MEDS ORDERED: CASPOFUNGIN ACETATE 70 MG in SODIUM CHLORIDE 250 ML IVPB ONE (18:04)
[2021-08-10] MEDS: SODIUM CHLORIDE 1,000 ML IV SCH (21:34)
[2021-08-10] MEDS: morphine SULFATE 4 MG/ML VIAL IVPUSH PRN (21:37)
[2021-08-10] MEDS ORDERED: ACETAMINOPHEN 1000 MG/100 ML VIAL IVPB PRN (21:57)
[2021-08-11] MEDS ORDERED: morphine SULFATE 4 MG/ML VIAL ONE (01:33)
[2021-08-11] MEDS: morphine SULFATE 4 MG/ML VIAL IVPUSH PRN ×6 (01:37→23:14)
[2021-08-11] MEDS: SODIUM CHLORIDE 1,000 ML IV SCH (02:27)
[2021-08-11 02:43] VITALS: BMI 17.6
[2021-08-11 08:48] LABS: EOS % 0.6 % (0-4.5); HEMATOCRIT 20.3 % (32.4-45.2); LYMPH % 38.4 % (8-40); MCH 28.3 pg (25.7-33.7); MCHC 34.5 g/dl (32.0-36.0); MEAN CELL VOLUME 81.8 fl (80-96); MEAN PLT VOLUME 8.4 fl (7.5-11.1); MONO % 9.6 % (3.8-10.2); NEUT % 50.4 % (42.8-82.8); PLATELET COUNT 308 10^3/uL (134-434); RBC 2.48 M/mm3 (3.60-5.2); RDW 17.5 % (11.6-15.6)
[2021-08-11 09:11] LABS: CALCIUM 8.7 mg/dL (8.5-10.1)
[2021-08-11 09:12] LABS: ALBUMIN 2.1 g/dl (3.4-5.0); BLOOD UREA NITROGEN 17.1 mg/dL (7-18)
[2021-08-11 09:14] LABS: CREATININE 0.4 mg/dL (0.55-1.3)
[2021-08-11 09:16] LABS: BILIRUBIN,TOTAL 0.4 mg/dL (0.2-1); TOT PROT 6.4 g/dl (6.4-8.2)
[2021-08-11] MEDS ORDERED: FLU VACC QS2021-22(6MOS UP)/PF 60 MCG/0.5 ML SYRINGE IM ONE (10:00)
[2021-08-11] MEDS: PANTOPRAZOLE SODIUM 40 MG VIAL IVPUSH SCH (10:28)
[2021-08-11] MEDS: fentaNYL 50mcg/hr PATCH.TD72 TD SCH (10:41)
[2021-08-11] MEDS: D5-1/2NS+20 MEQ KCL - 20 MEQ/1,000 ML INFUS.BAG IV SCH ×2 (10:51→22:38)
[2021-08-11] MEDS: CASPOFUNGIN ACETATE 50 MG in SODIUM CHLORIDE 250 ML IVPB SCH (13:55)
[2021-08-11] MEDS: ZOLPIDEM TARTRATE 5 MG TABLET PO PRN (21:19)
[2021-08-12] MEDS: morphine SULFATE 4 MG/ML VIAL IVPUSH PRN ×3 (03:28→21:51)
[2021-08-12] MEDS: ONDANSETRON 4 MG/2 ML VIAL IVPUSH PRN ×2 (06:26→21:49)
[2021-08-12 09:46] LABS: HEMATOCRIT 21.4 % (32.4-45.2); HEMOGLOBIN 7.2 GM/dL (10.7-15.3); MCH 27.8 pg (25.7-33.7); MCHC 33.6 g/dl (32.0-36.0); MEAN CELL VOLUME 82.6 fl (80-96); MEAN PLT VOLUME 8.5 fl (7.5-11.1); PLATELET COUNT 327 10^3/uL (134-434); RBC 2.59 M/mm3 (3.60-5.2); RDW 17.5 % (11.6-15.6); WHITE BLOOD COUNT 6.3 K/mm3 (4.0-10.0)
[2021-08-12 10:06] LABS: BLOOD UREA NITROGEN 10.8 mg/dL (7-18); CALCIUM 8.7 mg/dL (8.5-10.1)
[2021-08-12 10:07] LABS: ALBUMIN 2.1 g/dl (3.4-5.0)
[2021-08-12 10:08] LABS: MAGNESIUM 1.8 mg/dL (1.8-2.4)
[2021-08-12 10:09] LABS: CREATININE 0.4 mg/dL (0.55-1.3); PHOSPHOROUS 3.2 mg/dL (2.5-4.9)
[2021-08-12 10:11] LABS: BILIRUBIN,TOTAL 0.3 mg/dL (0.2-1); TOT PROT 6.4 g/dl (6.4-8.2)
[2021-08-12] MEDS: PANTOPRAZOLE SODIUM 40 MG VIAL IVPUSH SCH (13:25)
[2021-08-12] MEDS: CASPOFUNGIN ACETATE 50 MG in SODIUM CHLORIDE 250 ML IVPB SCH (13:25)
[2021-08-12] MEDS: D5-1/2NS+20 MEQ KCL - 20 MEQ/1,000 ML INFUS.BAG IV SCH (13:26)
[2021-08-12] MEDS: D5-NS + 20 MEQ KCL - 20 MEQ/1,000 ML INFUS.BAG IV SCH (18:17)
[2021-08-12] MEDS: ZOLPIDEM TARTRATE 5 MG TABLET PO PRN (21:49)
[2021-08-13] MEDS: morphine SULFATE 4 MG/ML VIAL IVPUSH PRN ×5 (03:32→21:03)
[2021-08-13] MEDS: D5-NS + 20 MEQ KCL - 20 MEQ/1,000 ML INFUS.BAG IV SCH ×2 (06:04→21:06)
[2021-08-13 09:03] LABS: HEMATOCRIT 22.7 % (32.4-45.2); HEMOGLOBIN 7.7 GM/dL (10.7-15.3); MCH 28.1 pg (25.7-33.7); MEAN CELL VOLUME 82.8 fl (80-96); PLATELET COUNT 381 10^3/uL (134-434); RBC 2.75 M/mm3 (3.60-5.2); RDW 17.4 % (11.6-15.6); WHITE BLOOD COUNT 6.7 K/mm3 (4.0-10.0)
[2021-08-13 09:27] LABS: CALCIUM 9.4 mg/dL (8.5-10.1)
[2021-08-13 09:28] LABS: ALBUMIN 2.4 g/dl (3.4-5.0); BLOOD UREA NITROGEN 7.7 mg/dL (7-18); MAGNESIUM 1.9 mg/dL (1.8-2.4); PHOSPHOROUS 3.8 mg/dL (2.5-4.9)
[2021-08-13 09:30] LABS: BILIRUBIN,TOTAL 0.2 mg/dL (0.2-1); TOT PROT 6.8 g/dl (6.4-8.2)
[2021-08-13 09:31] LABS: CREATININE 0.5 mg/dL (0.55-1.3)
[2021-08-13] MEDS ORDERED: PT OWN MED DRAWER 7, Y5N ONE (09:31)
[2021-08-13] MEDS: PANTOPRAZOLE SODIUM 40 MG VIAL IVPUSH SCH (10:40)
[2021-08-13] MEDS: CASPOFUNGIN ACETATE 50 MG in SODIUM CHLORIDE 250 ML IVPB SCH (10:41)
[2021-08-13 12:16] LABS: ANISOCYTOSIS 1+; MACROCYTOSIS 0; PLATELET ESTIMATE NORMAL
[2021-08-13] MEDS: ONDANSETRON 4 MG/2 ML VIAL IVPUSH PRN ×2 (12:17→18:29)
[2021-08-14] MEDS: morphine SULFATE 4 MG/ML VIAL IVPUSH PRN ×5 (01:07→20:38)
[2021-08-14] MEDS: ZOLPIDEM TARTRATE 5 MG TABLET PO PRN (01:07)
[2021-08-14] MEDS: D5-NS + 20 MEQ KCL - 20 MEQ/1,000 ML INFUS.BAG IV SCH (04:55)
[2021-08-14] MEDS ORDERED: PT OWN MED DRAWER 7, Y5N ONE (09:45)
[2021-08-14] MEDS: fentaNYL 50mcg/hr PATCH.TD72 TD SCH (10:02)
[2021-08-14] MEDS: CASPOFUNGIN ACETATE 50 MG in SODIUM CHLORIDE 250 ML IVPB SCH (10:02)
[2021-08-14] MEDS: FENTANYL PATCH WASTE TD PRN (12:32)
[2021-08-14] MEDS: PANTOPRAZOLE SODIUM 40 MG VIAL IVPUSH SCH (12:58)
[2021-08-14] MEDS ORDERED: AMINO ACIDS 4.25%/D5W 1,000 ML IV SCH (17:00)
[2021-08-15] MEDS: morphine SULFATE 4 MG/ML VIAL IVPUSH PRN ×6 (01:00→23:59)
[2021-08-15] MEDS: ONDANSETRON 4 MG/2 ML VIAL IVPUSH PRN (01:04)
[2021-08-15] MEDS: ZOLPIDEM TARTRATE 5 MG TABLET PO PRN (01:04)
[2021-08-15 08:56] LABS: BASO % 0.9 % (0-2.0); EOS % 1.6 % (0-4.5); HEMATOCRIT 21.3 % (32.4-45.2); HEMOGLOBIN 7.2 GM/dL (10.7-15.3); MCH 27.8 pg (25.7-33.7); MCHC 33.9 g/dl (32.0-36.0); MEAN PLT VOLUME 7.4 fl (7.5-11.1); MONO % 10.4 % (3.8-10.2); NEUT % 47.1 % (42.8-82.8); PLATELET COUNT 478 10^3/uL (134-434); RBC 2.59 M/mm3 (3.60-5.2); RDW 18.1 % (11.6-15.6); WHITE BLOOD COUNT 6.6 K/mm3 (4.0-10.0)
[2021-08-15 09:12] LABS: ALBUMIN 2.1 g/dl (3.4-5.0); BLOOD UREA NITROGEN 4.5 mg/dL (7-18); MAGNESIUM 1.9 mg/dL (1.8-2.4)
[2021-08-15 09:14] LABS: CHOLESTEROL 121 mg/dL (50-200); TRIGLYCERIDES 98 mg/dL (0-150)
[2021-08-15 09:15] LABS: CREATININE 0.5 mg/dL (0.55-1.3); PHOSPHOROUS 3.8 mg/dL (2.5-4.9)
[2021-08-15 09:16] LABS: BILIRUBIN,TOTAL 0.2 mg/dL (0.2-1); TOT PROT 6.2 g/dl (6.4-8.2)
[2021-08-15 09:17] LABS: HDL CHOLESTEROL 24 mg/dL (40-60)
[2021-08-15 09:18] LABS: LDL CHOLESTEROL (ONLY SJRH) 74 mg/dL (5-100)
[2021-08-15] MEDS: PANTOPRAZOLE SODIUM 40 MG VIAL IVPUSH SCH (10:33)
[2021-08-15] MEDS: CASPOFUNGIN ACETATE 50 MG in SODIUM CHLORIDE 250 ML IVPB SCH (10:33)
[2021-08-15] MEDS: AMINO ACIDS 4.25%/D5W 1,000 ML IV SCH (15:17)
[2021-08-15] MEDS ORDERED: PT OWN MED DRAWER 7, Y5N ONE (21:13)
[2021-08-15] MEDS: FAT EMULSION/OLIVE/SOY (CLINOLIPID) 250 ML EMULSION IV SCH (21:16)
[2021-08-16] MEDS: ZOLPIDEM TARTRATE 5 MG TABLET PO PRN ×2 (00:26→21:39)
[2021-08-16] MEDS: morphine SULFATE 4 MG/ML VIAL IVPUSH PRN ×4 (04:56→21:07)
[2021-08-16] MEDS: AMINO ACIDS 4.25%/D5W 1,000 ML IV SCH ×3 (05:34→21:40)
[2021-08-16 09:55] LABS: MAGNESIUM 1.6 mg/dL (1.8-2.4)
[2021-08-16 09:57] LABS: CALCIUM 9.2 mg/dL (8.5-10.1)
[2021-08-16 10:00] LABS: ALBUMIN 2.4 g/dl (3.4-5.0); BLOOD UREA NITROGEN 8.6 mg/dL (7-18)
[2021-08-16 10:02] LABS: BILIRUBIN,TOTAL 0.4 mg/dL (0.2-1); TOT PROT 6.8 g/dl (6.4-8.2)
[2021-08-16 10:03] LABS: CREATININE 0.6 mg/dL (0.55-1.3); PHOSPHOROUS 3.8 mg/dL (2.5-4.9)
[2021-08-16] MEDS ORDERED: PT OWN MED DRAWER 7, Y5N ONE (11:23)
[2021-08-16] MEDS: CASPOFUNGIN ACETATE 50 MG in SODIUM CHLORIDE 250 ML IVPB SCH (11:53)
[2021-08-16] MEDS: PANTOPRAZOLE SODIUM 40 MG VIAL IVPUSH SCH (11:53)
[2021-08-16] MEDS ORDERED: MAGNESIUM SULF 50% (8.12 MEQ/2 ML-1 GM VIAL) IVPB ONE (14:32)
[2021-08-16 15:17] LABS: HEMATOCRIT 25.8 % (32.4-45.2); HEMOGLOBIN 8.6 GM/dL (10.7-15.3); MCHC 33.1 g/dl (32.0-36.0); MEAN CELL VOLUME 84.6 fl (80-96); MEAN PLT VOLUME 7.2 fl (7.5-11.1); PLATELET COUNT 565 10^3/uL (134-434); RBC 3.05 M/mm3 (3.60-5.2); WHITE BLOOD COUNT 8.1 K/mm3 (4.0-10.0)
[2021-08-16 15:39] LABS: CALCIUM 9.4 mg/dL (8.5-10.1)
[2021-08-16 15:40] LABS: ALBUMIN 2.5 g/dl (3.4-5.0)
[2021-08-16 15:43] LABS: CREATININE 0.6 mg/dL (0.55-1.3)
[2021-08-16 15:44] LABS: BILIRUBIN,TOTAL 0.3 mg/dL (0.2-1); TOT PROT 7.2 g/dl (6.4-8.2)
[2021-08-16 15:45] LABS: BLOOD UREA NITROGEN 8.5 mg/dL (7-18)
[2021-08-16] MEDS: ONDANSETRON 4 MG/2 ML VIAL IVPUSH PRN (18:43)
[2021-08-16] MEDS: FAT EMULSION/OLIVE/SOY (CLINOLIPID) 250 ML EMULSION IV SCH (21:40)
[2021-08-17] MEDS: morphine SULFATE 4 MG/ML VIAL IVPUSH PRN ×4 (02:55→21:39)
[2021-08-17] MEDS: PANTOPRAZOLE SODIUM 40 MG VIAL IVPUSH SCH (10:01)
[2021-08-17] MEDS: fentaNYL 50mcg/hr PATCH.TD72 TD SCH (10:16)
[2021-08-17] MEDS: CASPOFUNGIN ACETATE 50 MG in SODIUM CHLORIDE 250 ML IVPB SCH (10:24)
[2021-08-17] MEDS: FENTANYL PATCH WASTE TD PRN (11:30)
[2021-08-17] MEDS: AMINO ACIDS 4.25%/D5W 1,000 ML IV SCH (14:36)
[2021-08-17] MEDS: AMINO ACIDS 4.25%/D5W 2,000 ML IV SCH (16:58)
[2021-08-17] MEDS ORDERED: FENTANYL PATCH WASTE MC PRN (20:03)
[2021-08-17] MEDS: FAT EMULSION/OLIVE/SOY/PHOSPHO 250 ML IV SCH (21:39)
[2021-08-17] MEDS: ONDANSETRON 4 MG/2 ML VIAL IVPUSH PRN (21:39)
[2021-08-17] MEDS: ZOLPIDEM TARTRATE 5 MG TABLET PO PRN (21:39)
[2021-08-17] MEDS ORDERED: FAT EMULSION/OLIVE/SOY (CLINOLIPID) 250 ML EMULSION IV SCH (22:00)
[2021-08-18] MEDS: morphine SULFATE 4 MG/ML VIAL IVPUSH PRN ×4 (01:55→21:28)
[2021-08-18] MEDS: ZOLPIDEM TARTRATE 5 MG TABLET PO PRN (01:55)
[2021-08-18 08:44] LABS: HEMATOCRIT 24.4 % (32.4-45.2); HEMOGLOBIN 8.2 GM/dL (10.7-15.3); MCH 28.3 pg (25.7-33.7); MCHC 33.6 g/dl (32.0-36.0); MEAN CELL VOLUME 84.4 fl (80-96); MEAN PLT VOLUME 7.5 fl (7.5-11.1); PLATELET COUNT 543 10^3/uL (134-434); RBC 2.89 M/mm3 (3.60-5.2); RDW 19.1 % (11.6-15.6); WHITE BLOOD COUNT 6.6 K/mm3 (4.0-10.0)
[2021-08-18 08:52] LABS: INR 1.19 (0.83-1.09); PROTHROMBIN TIME (PATIENT) 13.3 SEC (9.7-13.0)
[2021-08-18 08:55] LABS: ACTIVATED PTT 27.9 SECONDS (25.2-36.5)
[2021-08-18 09:43] LABS: CHOLESTEROL 142 mg/dL (50-200)
[2021-08-18 09:44] LABS: TRIGLYCERIDES 149 mg/dL (0-150)
[2021-08-18 09:45] LABS: LDL CHOLESTEROL (ONLY SJRH) 83 mg/dL (5-100)
[2021-08-18 09:47] LABS: HDL CHOLESTEROL 32 mg/dL (40-60)
[2021-08-18 09:51] LABS: CALCIUM 9.3 mg/dL (8.5-10.1)
[2021-08-18 09:52] LABS: ALBUMIN 2.3 g/dl (3.4-5.0); BLOOD UREA NITROGEN 12.4 mg/dL (7-18); MAGNESIUM 1.9 mg/dL (1.8-2.4)
[2021-08-18 09:54] LABS: CREATININE 0.5 mg/dL (0.55-1.3)
[2021-08-18 09:55] LABS: PHOSPHOROUS 3.6 mg/dL (2.5-4.9)
[2021-08-18 09:56] LABS: BILIRUBIN,TOTAL 0.3 mg/dL (0.2-1); TOT PROT 6.6 g/dl (6.4-8.2)
[2021-08-18] MEDS ORDERED: PT OWN MED DRAWER 7, Y5N ONE (10:06)
[2021-08-18] MEDS: CASPOFUNGIN ACETATE 50 MG in SODIUM CHLORIDE 250 ML IVPB SCH (10:27)
[2021-08-18] MEDS: PANTOPRAZOLE SODIUM 40 MG VIAL IVPUSH SCH (10:27)
[2021-08-18] MEDS: KCL 10 MEQ IVPB 10 MEQ/100 ML INFUS.BAG IVPB SCH ×3 (17:01→21:06)
[2021-08-18] MEDS: AMINO ACIDS 4.25%/D5W 2,000 ML IV SCH (18:33)
[2021-08-18] MEDS ORDERED: KCL 10 MEQ IVPB 10 MEQ/100 ML INFUS.BAG IVPB SCH (21:00)
[2021-08-18] MEDS: FAT EMULSION/OLIVE/SOY/PHOSPHO 250 ML IV SCH (21:06)
[2021-08-19] MEDS: ZOLPIDEM TARTRATE 5 MG TABLET PO PRN (03:03)
[2021-08-19] MEDS: morphine SULFATE 4 MG/ML VIAL IVPUSH PRN ×4 (03:03→17:13)
[2021-08-19] MEDS: CASPOFUNGIN ACETATE 50 MG in SODIUM CHLORIDE 250 ML IVPB SCH (10:14)
[2021-08-19] MEDS: PANTOPRAZOLE SODIUM 40 MG VIAL IVPUSH SCH (10:14)
[2021-08-19 11:50] LABS: HEMATOCRIT 25.2 % (32.4-45.2); HEMOGLOBIN 8.5 GM/dL (10.7-15.3); MCH 28.3 pg (25.7-33.7); MCHC 33.9 g/dl (32.0-36.0); MEAN CELL VOLUME 83.7 fl (80-96); MEAN PLT VOLUME 7.5 fl (7.5-11.1); PLATELET COUNT 493 10^3/uL (134-434); RBC 3.01 M/mm3 (3.60-5.2); RDW 19.2 % (11.6-15.6); WHITE BLOOD COUNT 6.4 K/mm3 (4.0-10.0)
[2021-08-19 11:53] LABS: CALCIUM 9.2 mg/dL (8.5-10.1)
[2021-08-19 11:54] LABS: ALBUMIN 2.4 g/dl (3.4-5.0); BLOOD UREA NITROGEN 12.3 mg/dL (7-18)
[2021-08-19 11:57] LABS: CREATININE 0.4 mg/dL (0.55-1.3)
[2021-08-19 11:58] LABS: BILIRUBIN,TOTAL 0.3 mg/dL (0.2-1); TOT PROT 6.6 g/dl (6.4-8.2)
[2021-08-19] MEDS: KCL 10 MEQ IVPB 10 MEQ/100 ML INFUS.BAG IVPB SCH ×3 (16:41→18:42)
[2021-08-19] MEDS: MULTIVIT IV SCH (16:52)
[2021-08-19] MEDS: POTASSIUM CHLORIDE IV SCH (16:52)
[2021-08-19] MEDS: [UNRECOGNIZED DRUG - OTHER] IV SCH (16:52)
[2021-08-19] MEDS: AMINO ACIDS 4.25%/D5W 2,000 ML IV SCH (17:03)
[2021-08-19] MEDS ORDERED: PT OWN MED DRAWER 7, Y5N ONE (20:50)
[2021-08-19] MEDS: FAT EMULSION/OLIVE/SOY/PHOSPHO 250 ML IV SCH (21:26)
[2021-08-19] MEDS ORDERED: MINERAL OIL ENEMA 133 ML ENEMA PR ONE (22:44)
[2021-08-20] MEDS: ZOLPIDEM TARTRATE 5 MG TABLET PO PRN ×2 (00:10→22:57)
[2021-08-20] MEDS: morphine SULFATE 4 MG/ML VIAL IVPUSH PRN ×5 (00:10→22:56)
[2021-08-20] MEDS: CASPOFUNGIN ACETATE 50 MG in SODIUM CHLORIDE 250 ML IVPB SCH (11:24)
[2021-08-20] MEDS: PANTOPRAZOLE SODIUM 40 MG VIAL IVPUSH SCH (11:24)
[2021-08-20] MEDS: [UNRECOGNIZED DRUG - OTHER] IV SCH (18:23)
[2021-08-20] MEDS: POTASSIUM CHLORIDE IV SCH (18:23)
[2021-08-20] MEDS: MULTIVIT IV SCH (18:23)
[2021-08-20] MEDS ORDERED: fentaNYL 50mcg/hr PATCH.TD72 TD SCH (20:15)
[2021-08-20] MEDS: FAT EMULSION/OLIVE/SOY/PHOSPHO 250 ML IV SCH (22:54)
[2021-08-20] MEDS: FENTANYL PATCH WASTE TD PRN (23:19)
[2021-08-21] MEDS: morphine SULFATE 4 MG/ML VIAL IVPUSH PRN ×4 (01:34→15:24)
[2021-08-21] MEDS: ONDANSETRON 4 MG/2 ML VIAL IVPUSH PRN (05:55)
[2021-08-21 08:44] LABS: BASO % 0.8 % (0-2.0); EOS % 5.4 % (0-4.5); HEMATOCRIT 29.3 % (32.4-45.2); HEMOGLOBIN 9.7 GM/dL (10.7-15.3); LYMPH % 25.8 % (8-40); MCH 27.8 pg (25.7-33.7); MCHC 33.2 g/dl (32.0-36.0); MEAN CELL VOLUME 83.8 fl (80-96); MEAN PLT VOLUME 7.2 fl (7.5-11.1); MONO % 10.3 % (3.8-10.2); NEUT % 57.7 % (42.8-82.8); PLATELET COUNT 414 10^3/uL (134-434); RBC 3.49 M/mm3 (3.60-5.2); RDW 18.7 % (11.6-15.6); WHITE BLOOD COUNT 5.8 K/mm3 (4.0-10.0)
[2021-08-21 09:22] LABS: CALCIUM 9.5 mg/dL (8.5-10.1)
[2021-08-21 09:23] LABS: ALBUMIN 2.7 g/dl (3.4-5.0); BLOOD UREA NITROGEN 15.3 mg/dL (7-18); MAGNESIUM 1.8 mg/dL (1.8-2.4)
[2021-08-21 09:26] LABS: CREATININE 0.5 mg/dL (0.55-1.3); TOT PROT 7.6 g/dl (6.4-8.2)
[2021-08-21 09:28] LABS: BILIRUBIN,TOTAL 0.4 mg/dL (0.2-1)
[2021-08-21] MEDS: PANTOPRAZOLE SODIUM 40 MG VIAL IVPUSH SCH (10:45)
[2021-08-21] MEDS: CASPOFUNGIN ACETATE 50 MG in SODIUM CHLORIDE 250 ML IVPB SCH (10:45)
[2021-08-21] MEDS ORDERED: KCL 10 MEQ IVPB 10 MEQ/100 ML INFUS.BAG IVPB ONE ×3 (13:46→16:17)
[2021-08-21] MEDS: KCL 10 MEQ IVPB 10 MEQ/100 ML INFUS.BAG IVPB SCH ×3 (13:53→16:20)
[2021-08-21 15:18] VITALS: BP 148/80; PULSE 62; TEMP 98.5
[2021-08-21] MEDS ORDERED: POTASSIUM CHLORIDE IV SCH (16:00)
[2021-08-21] MEDS ORDERED: MULTIVIT IV SCH (16:00)
[2021-08-21] MEDS ORDERED: [UNRECOGNIZED DRUG - OTHER] IV SCH (16:00)
== END 2021-08-21 18:35 | disposition home health service (06) | DRG 724 ==
LOC: JER 14:14 → JERBED 16:07 → J5S 08-11 02:21
PROVIDERS: ADMIT Internal Medicine; ATTEND Internal Medicine
PROC: 05HC33Z Insertion of Infusion Device into Left Basilic Vein, Percutaneous Approach (ICD-10-PCS; principal; 2021-08-18)
PROC: B51NZZA Fluoroscopy of Left Upper Extremity Veins, Guidance (ICD-10-PCS; 2021-08-18)
DX: B49 Unspecified mycosis (principal); C16.9 Malignant neoplasm of stomach, unspecified; C79.9 Secondary malignant neoplasm of unspecified site; E43 Unspecified severe protein-calorie malnutrition; E86.0 Dehydration; R64 Cachexia; D63.0 Anemia in neoplastic disease; R53.1 Weakness; R62.7 Adult failure to thrive; Z68.1 Body mass index [BMI] 19.9 or less, adult; E87.6 Hypokalemia
CPT/HCPCS: 36415; 36569; 71045-TC-FY; 77001-TC-FY; 80053; 80061; 83735; 84100; 85025; 85027; 85610; 85730; 86850; 86900; 86901; 87040; 93306-TC; 99285-25; C1751; C9803; J0637; U0003; U0005

== ENCOUNTER 2021-08-29 11:58 | Inpatient (IN) | payer OTHER ==
[2021-08-29] MEDS ORDERED: ONDANSETRON 4 MG/2 ML VIAL IVPUSH ONE (12:32)
[2021-08-29] MEDS ORDERED: morphine CARPU-JECT 4 MG/1 ML DISP.SYRIN IVPUSH ONE (12:32)
[2021-08-29] MEDS ORDERED: morphine SULFATE 4 MG/ML VIAL ONE (12:48)
[2021-08-29] MEDS ORDERED: ONDANSETRON 4 MG/2 ML VIAL ONE (12:49)
[2021-08-29] MEDS ORDERED: CASPOFUNGIN ACETATE 50 MG in SODIUM CHLORIDE 250 ML IVPB ONE (12:55)
[2021-08-29 13:34] LABS: BASO % 0.6 % (0-2.0); HEMATOCRIT 28.1 % (32.4-45.2); HEMOGLOBIN 9.4 GM/dL (10.7-15.3); LYMPH % 24.1 % (8-40); MCH 27.7 pg (25.7-33.7); MCHC 33.6 g/dl (32.0-36.0); MEAN CELL VOLUME 82.2 fl (80-96); MEAN PLT VOLUME 8.2 fl (7.5-11.1); MONO % 10.1 % (3.8-10.2); NEUT % 63.2 % (42.8-82.8); PLATELET COUNT 355 10^3/uL (134-434); RBC 3.42 M/mm3 (3.60-5.2); RDW 17.7 % (11.6-15.6); WHITE BLOOD COUNT 7.4 K/mm3 (4.0-10.0)
[2021-08-29 14:39] LABS: ALBUMIN 2.8 g/dl (3.4-5.0); BILIRUBIN,TOTAL 1.6 mg/dL (0.2-1); BLOOD UREA NITROGEN 15.8 mg/dL (7-18); CALCIUM 9.6 mg/dL (8.5-10.1); CREATININE 0.5 mg/dL (0.55-1.3); MAGNESIUM 2.2 mg/dL (1.8-2.4); PHOSPHOROUS 3.2 mg/dL (2.5-4.9); TOT PROT 7.5 g/dl (6.4-8.2)
[2021-08-29] MEDS ORDERED: MIDAZOLAM HCL 2 MG/2 ML SINGLE DOSE VIAL IVPUSH ONE (15:23)
[2021-08-29] MEDS ORDERED: MIDAZOLAM HCL 2 MG/2 ML SINGLE DOSE VIAL ONE (15:28)
[2021-08-29] MEDS ORDERED: ONDANSETRON 4 MG/2 ML VIAL IVPUSH PRN (17:07)
[2021-08-29] MEDS ORDERED: FENTANYL PATCH WASTE MC PRN ×2 (17:07→18:00)
[2021-08-29] MEDS ORDERED: morphine SULFATE 4 MG/ML VIAL IVPUSH PRN (17:08)
[2021-08-29] MEDS ORDERED: fentaNYL 100mcg/hr PATCH.TD72 TD SCH (17:15)
[2021-08-29] MEDS: fentaNYL 75mcg/hr PATCH.TD72 TD SCH (19:22)
[2021-08-29] MEDS: DEXTROSE 5%-0.45% SALINE 1,000 ML IV SCH (19:32)
[2021-08-29] MEDS: morphine SULFATE 4 MG/ML VIAL IVPUSH PRN ×2 (19:32→23:36)
[2021-08-29] MEDS: ZOLPIDEM TARTRATE 5 MG TABLET PO PRN (21:24)
[2021-08-30] MEDS: LIDOCAINE 5% TOPICAL PATCH TP SCH ×2 (00:41→21:30)
[2021-08-30] MEDS: morphine SULFATE 4 MG/ML VIAL IVPUSH PRN ×4 (03:41→20:35)
[2021-08-30 08:21] LABS: HEMOGLOBIN 9.3 GM/dL (10.7-15.3); MCH 27.5 pg (25.7-33.7); MCHC 33.3 g/dl (32.0-36.0); MEAN CELL VOLUME 82.7 fl (80-96); MEAN PLT VOLUME 8.3 fl (7.5-11.1); PLATELET COUNT 370 10^3/uL (134-434); RBC 3.38 M/mm3 (3.60-5.2); RDW 17.7 % (11.6-15.6); WHITE BLOOD COUNT 10.8 K/mm3 (4.0-10.0)
[2021-08-30 08:55] LABS: CALCIUM 9.5 mg/dL (8.5-10.1)
[2021-08-30 08:56] LABS: ALBUMIN 2.6 g/dl (3.4-5.0); BLOOD UREA NITROGEN 11.6 mg/dL (7-18)
[2021-08-30 08:58] LABS: BILIRUBIN,TOTAL 1.5 mg/dL (0.2-1); TOT PROT 6.8 g/dl (6.4-8.2)
[2021-08-30 08:59] LABS: CREATININE 0.5 mg/dL (0.55-1.3)
[2021-08-30] MEDS: PANTOPRAZOLE SODIUM 40 MG VIAL IVPUSH SCH (09:34)
[2021-08-30] MEDS: ONDANSETRON 4 MG/2 ML VIAL IVPUSH PRN ×2 (09:34→13:01)
[2021-08-30] MEDS: LIDOCAINE PATCH REMOVAL MC SCH (13:02)
[2021-08-30] MEDS: CASPOFUNGIN ACETATE IVPB SCH (16:28)
[2021-08-30] MEDS: SODIUM CHLORIDE IVPB SCH (16:28)
[2021-08-30] MEDS: DEXTROSE 5%-0.45% SALINE 1,000 ML IV SCH (20:36)
[2021-08-30] MEDS: POTASSIUM CHLORIDE 20 MEQ in AMINO ACIDS 4.25%/D5W 1,000 ML IV SCH (20:36)
[2021-08-30] MEDS: ZOLPIDEM TARTRATE 5 MG TABLET PO PRN (22:24)
[2021-08-31] MEDS: morphine SULFATE 4 MG/ML VIAL IVPUSH PRN ×5 (04:11→22:52)
[2021-08-31 08:36] LABS: CALCIUM 9.3 mg/dL (8.5-10.1)
[2021-08-31 08:37] LABS: ALBUMIN 2.3 g/dl (3.4-5.0); BLOOD UREA NITROGEN 11.1 mg/dL (7-18)
[2021-08-31 08:40] LABS: CREATININE 0.6 mg/dL (0.55-1.3)
[2021-08-31 08:42] LABS: TOT PROT 6.8 g/dl (6.4-8.2)
[2021-08-31] MEDS: ONDANSETRON 4 MG/2 ML VIAL IVPUSH PRN ×2 (10:43→18:05)
[2021-08-31] MEDS: PANTOPRAZOLE SODIUM 40 MG VIAL IVPUSH SCH (10:45)
[2021-08-31] MEDS: LIDOCAINE PATCH REMOVAL MC SCH (10:48)
[2021-08-31] MEDS ORDERED: PIPERACILLIN/TAZOBACTAM 3.375 GM VIAL IVPB ONE (16:51)
[2021-08-31] MEDS ORDERED: DEXTROSE 5%-WATER - 50 ML IVPB ONE (16:52)
[2021-08-31] MEDS: PIPERACILLIN/TAZOB 3.375 GM 3.375 GM in DEXTROSE 5%-WATER - 50 ML IVPB SCH (17:24)
[2021-08-31] MEDS: POTASSIUM CHLORIDE 20 MEQ in AMINO ACIDS 4.25%/D5W 1,000 ML IV SCH (17:24)
[2021-08-31] MEDS: SODIUM CHLORIDE IVPB SCH (19:40)
[2021-08-31] MEDS: CASPOFUNGIN ACETATE IVPB SCH (19:40)
[2021-08-31] MEDS: ZOLPIDEM TARTRATE 5 MG TABLET PO PRN (22:52)
[2021-08-31] MEDS: LIDOCAINE 5% TOPICAL PATCH TP SCH (22:52)
[2021-09-01] MEDS ORDERED: DEXTROSE 5%-WATER - 50 ML IVPB ONE ×3 (01:33→17:06)
[2021-09-01] MEDS ORDERED: PIPERACILLIN/TAZOBACTAM 3.375 GM VIAL IVPB ONE ×3 (01:33→17:06)
[2021-09-01] MEDS: PIPERACILLIN/TAZOB 3.375 GM 3.375 GM in DEXTROSE 5%-WATER - 50 ML IVPB SCH ×3 (02:30→18:04)
[2021-09-01] MEDS: ONDANSETRON 4 MG/2 ML VIAL IVPUSH PRN ×3 (03:44→21:50)
[2021-09-01] MEDS: morphine SULFATE 4 MG/ML VIAL IVPUSH PRN ×5 (03:44→23:31)
[2021-09-01 08:52] LABS: BASO % 0.6 % (0-2.0); EOS % 1.5 % (0-4.5); HEMATOCRIT 29.8 % (32.4-45.2); LYMPH % 18.2 % (8-40); MCH 27.5 pg (25.7-33.7); MCHC 33.5 g/dl (32.0-36.0); MEAN PLT VOLUME 8.4 fl (7.5-11.1); MONO % 10.8 % (3.8-10.2); NEUT % 68.9 % (42.8-82.8); PLATELET COUNT 483 10^3/uL (134-434); RBC 3.63 M/mm3 (3.60-5.2); RDW 17.4 % (11.6-15.6); WHITE BLOOD COUNT 9.2 K/mm3 (4.0-10.0)
[2021-09-01 09:14] LABS: CALCIUM 9.7 mg/dL (8.5-10.1)
[2021-09-01 09:15] LABS: ALBUMIN 2.7 g/dl (3.4-5.0); BLOOD UREA NITROGEN 12.6 mg/dL (7-18)
[2021-09-01 09:18] LABS: CREATININE 0.6 mg/dL (0.55-1.3)
[2021-09-01 09:19] LABS: BILIRUBIN,TOTAL 2.9 mg/dL (0.2-1)
[2021-09-01 09:20] LABS: TOT PROT 7.6 g/dl (6.4-8.2)
[2021-09-01] MEDS: LIDOCAINE PATCH REMOVAL MC SCH (11:32)
[2021-09-01] MEDS: PANTOPRAZOLE SODIUM 40 MG VIAL IVPUSH SCH (11:32)
[2021-09-01] MEDS: SODIUM CHLORIDE IVPB SCH (15:37)
[2021-09-01] MEDS: POTASSIUM CHLORIDE 20 MEQ in AMINO ACIDS 4.25%/D5W 1,000 ML IV SCH (15:37)
[2021-09-01] MEDS: CASPOFUNGIN ACETATE IVPB SCH (15:37)
[2021-09-01] MEDS: fentaNYL 75mcg/hr PATCH.TD72 TD SCH (18:04)
[2021-09-01] MEDS: LIDOCAINE 5% TOPICAL PATCH TP SCH (22:41)
[2021-09-01] MEDS: ZOLPIDEM TARTRATE 5 MG TABLET PO PRN (23:36)
[2021-09-02] MEDS ORDERED: PIPERACILLIN/TAZOBACTAM 3.375 GM VIAL IVPB ONE ×4 (02:56→22:53)
[2021-09-02] MEDS ORDERED: DEXTROSE 5%-WATER - 50 ML IVPB ONE ×4 (02:56→22:53)
[2021-09-02] MEDS: PIPERACILLIN/TAZOB 3.375 GM 3.375 GM in DEXTROSE 5%-WATER - 50 ML IVPB SCH ×3 (02:59→17:20)
[2021-09-02] MEDS: morphine SULFATE 4 MG/ML VIAL IVPUSH PRN ×4 (03:34→23:02)
[2021-09-02] MEDS ORDERED: morphine SULFATE 4 MG/ML VIAL IVPUSH PRN (06:13)
[2021-09-02] MEDS: fentaNYL 100mcg/hr PATCH.TD72 TD SCH (06:55)
[2021-09-02] MEDS: FENTANYL PATCH WASTE TD PRN (07:00)
[2021-09-02 09:51] LABS: TOT PROT 7.5 g/dl (6.4-8.2)
[2021-09-02 09:54] LABS: CALCIUM 9.4 mg/dL (8.5-10.1)
[2021-09-02 09:55] LABS: ALBUMIN 2.4 g/dl (3.4-5.0); BLOOD UREA NITROGEN 10.9 mg/dL (7-18); MAGNESIUM 1.8 mg/dL (1.8-2.4)
[2021-09-02 09:57] LABS: PHOSPHOROUS 3.2 mg/dL (2.5-4.9)
[2021-09-02 09:58] LABS: BILIRUBIN,TOTAL 2.9 mg/dL (0.2-1); CREATININE 0.6 mg/dL (0.55-1.3)
[2021-09-02] MEDS: PANTOPRAZOLE SODIUM 40 MG VIAL IVPUSH SCH (10:05)
[2021-09-02] MEDS: LIDOCAINE PATCH REMOVAL MC SCH (10:07)
[2021-09-02] MEDS ORDERED: morphine SULFATE 4 MG/ML VIAL IVPB PRN (12:52)
[2021-09-02] MEDS: POTASSIUM CHLORIDE 20 MEQ in AMINO ACIDS 4.25%/D5W 1,000 ML IV SCH (13:58)
[2021-09-02] MEDS: CASPOFUNGIN ACETATE IVPB SCH (15:31)
[2021-09-02] MEDS: SODIUM CHLORIDE IVPB SCH (15:31)
[2021-09-02] MEDS: ONDANSETRON 4 MG/2 ML VIAL IVPUSH PRN (16:58)
[2021-09-02] MEDS ORDERED: [UNRECOGNIZED DRUG - OTHER] IV SCH (17:30)
[2021-09-02] MEDS ORDERED: SODIUM CHLORIDE IV SCH (17:30)
[2021-09-02] MEDS ORDERED: POTASSIUM CHLORIDE IV SCH (17:30)
[2021-09-02] MEDS: LIDOCAINE 5% TOPICAL PATCH TP SCH (22:42)
[2021-09-02] MEDS: ZOLPIDEM TARTRATE 5 MG TABLET PO PRN (23:07)
[2021-09-03] MEDS: PIPERACILLIN/TAZOB 3.375 GM 3.375 GM in DEXTROSE 5%-WATER - 50 ML IVPB SCH ×3 (02:30→17:58)
[2021-09-03] MEDS: morphine SULFATE 4 MG/ML VIAL IVPUSH PRN ×5 (03:02→21:07)
[2021-09-03] MEDS: ONDANSETRON 4 MG/2 ML VIAL IVPUSH PRN ×3 (03:03→20:13)
[2021-09-03] MEDS ORDERED: PIPERACILLIN/TAZOBACTAM 3.375 GM VIAL IVPB ONE ×2 (07:26→17:03)
[2021-09-03] MEDS ORDERED: DEXTROSE 5%-WATER - 50 ML IVPB ONE ×2 (07:27→17:03)
[2021-09-03] MEDS: LIDOCAINE PATCH REMOVAL MC SCH (10:13)
[2021-09-03] MEDS: PANTOPRAZOLE SODIUM 40 MG VIAL IVPUSH SCH (10:13)
[2021-09-03 12:39] LABS: ALBUMIN 2.4 g/dl (3.4-5.0); CALCIUM 9.5 mg/dL (8.5-10.1); MAGNESIUM 1.8 mg/dL (1.8-2.4)
[2021-09-03 12:42] LABS: CREATININE 0.5 mg/dL (0.55-1.3); PHOSPHOROUS 3.1 mg/dL (2.5-4.9)
[2021-09-03 12:44] LABS: TOT PROT 7.2 g/dl (6.4-8.2)
[2021-09-03 13:38] LABS: HEMATOCRIT 27.9 % (32.4-45.2); HEMOGLOBIN 9.4 GM/dL (10.7-15.3); MCH 27.2 pg (25.7-33.7); MCHC 33.6 g/dl (32.0-36.0); MEAN CELL VOLUME 81.1 fl (80-96); MEAN PLT VOLUME 8.4 fl (7.5-11.1); PLATELET COUNT 559 10^3/uL (134-434); RBC 3.44 M/mm3 (3.60-5.2); RDW 16.7 % (11.6-15.6); WHITE BLOOD COUNT 11.5 K/mm3 (4.0-10.0)
[2021-09-03 13:43] LABS: INR 1.31 (0.83-1.09); PROTHROMBIN TIME (PATIENT) 14.7 SEC (9.7-13.0)
[2021-09-03] MEDS: KCL 10 MEQ IVPB 10 MEQ/100 ML INFUS.BAG IVPB SCH ×3 (14:01→17:35)
[2021-09-03] MEDS: SODIUM CHLORIDE IVPB SCH (16:55)
[2021-09-03] MEDS: POTASSIUM CHLORIDE IV SCH (16:55)
[2021-09-03] MEDS: CASPOFUNGIN ACETATE IVPB SCH (16:55)
[2021-09-03] MEDS: SODIUM CHLORIDE IV SCH (16:55)
[2021-09-03] MEDS: [UNRECOGNIZED DRUG - OTHER] IV SCH (16:55)
[2021-09-03] MEDS: ZOLPIDEM TARTRATE 5 MG TABLET PO PRN (21:07)
[2021-09-03] MEDS: LIDOCAINE 5% TOPICAL PATCH TP SCH (21:07)
[2021-09-04] MEDS ORDERED: PIPERACILLIN/TAZOBACTAM 3.375 GM VIAL IVPB ONE ×4 (01:18→23:53)
[2021-09-04] MEDS ORDERED: DEXTROSE 5%-WATER - 50 ML IVPB ONE ×4 (01:18→23:53)
[2021-09-04] MEDS: morphine SULFATE 4 MG/ML VIAL IVPUSH PRN ×6 (01:20→21:07)
[2021-09-04] MEDS: PIPERACILLIN/TAZOB 3.375 GM 3.375 GM in DEXTROSE 5%-WATER - 50 ML IVPB SCH ×3 (01:22→17:02)
[2021-09-04] MEDS ORDERED: PT OWN MED DRAWER 7, Y5N ONE (08:40)
[2021-09-04] MEDS ORDERED: LORazepam 2 MG/ML SDV VIAL IVPUSH PRN (09:09)
[2021-09-04] MEDS: LIDOCAINE PATCH REMOVAL MC SCH (09:11)
[2021-09-04] MEDS: PANTOPRAZOLE SODIUM 40 MG VIAL IVPUSH SCH (09:11)
[2021-09-04] MEDS: POTASSIUM CHLORIDE IV SCH ×2 (09:48→15:48)
[2021-09-04] MEDS: [UNRECOGNIZED DRUG - OTHER] IV SCH ×2 (09:48→15:48)
[2021-09-04] MEDS: SODIUM CHLORIDE IV SCH ×2 (09:48→15:48)
[2021-09-04 15:28] VITALS: BMI 17.6
[2021-09-04] MEDS: CASPOFUNGIN ACETATE IVPB SCH (15:48)
[2021-09-04] MEDS: SODIUM CHLORIDE IVPB SCH (15:48)
[2021-09-04] MEDS ORDERED: [UNRECOGNIZED DRUG - OTHER] IV SCH (16:46)
[2021-09-04] MEDS ORDERED: SODIUM CHLORIDE IV SCH (16:46)
[2021-09-04] MEDS ORDERED: POTASSIUM CHLORIDE IV SCH (16:46)
[2021-09-04] MEDS: ONDANSETRON 4 MG/2 ML VIAL IVPUSH PRN (20:17)
[2021-09-04] MEDS: LIDOCAINE 5% TOPICAL PATCH TP SCH (21:09)
[2021-09-04] MEDS ORDERED: ZOLPIDEM TARTRATE 5 MG TABLET PO PRN (23:09)
[2021-09-05] MEDS ORDERED: SODIUM CHLORIDE 1,000 ML IV STA ×2 (00:57→04:30)
[2021-09-05] MEDS ORDERED: NALOXONE HCL 0.4 MG/ML VIAL IVPUSH ONE (01:04)
[2021-09-05] MEDS ORDERED: MUPIROCIN 2% TOPICAL OINTMENT FOR DECOLONIZATION NS SCH (01:30)
[2021-09-05] MEDS: PIPERACILLIN/TAZOB 3.375 GM 3.375 GM in DEXTROSE 5%-WATER - 50 ML IVPB SCH (03:00)
[2021-09-05] MEDS: morphine SULFATE 4 MG/ML VIAL IVPUSH PRN (03:04)
[2021-09-05 04:11] LABS: CHLORIDE 105 mmol/L (98-107); SODIUM 137 mmol/L (136-145)
[2021-09-05 04:12] LABS: CALCIUM 8.4 mg/dL (8.5-10.1)
[2021-09-05 04:13] LABS: BLOOD UREA NITROGEN 13.2 mg/dL (7-18); CO2 19 mmol/L (21-32); GLUCOSE,RANDOM 72 mg/dL (74-106); MAGNESIUM 1.3 mg/dL (1.8-2.4)
[2021-09-05 04:16] LABS: CREATININE 0.9 mg/dL (0.55-1.3); PHOSPHOROUS 1.8 mg/dL (2.5-4.9); SGOT/AST 75 U/L (15-37); SGPT/ALT 84 U/L (13-61)
[2021-09-05 04:18] LABS: BILIRUBIN,TOTAL 5.9 mg/dL (0.2-1); TOT PROT 5.8 g/dl (6.4-8.2)
[2021-09-05 04:22] LABS: ALBUMIN 1.8 g/dl (3.4-5.0); ALK PHOS 898 U/L (45-117); ANION GAP 13 MMOL/L (8-16)
[2021-09-05] MEDS ORDERED: MAGNESIUM SULF 50% (8.12 MEQ/2 ML-1 GM VIAL) IVPB ONE (04:35)
[2021-09-05] MEDS ORDERED: POTASSIUM CHLORIDE TABS 20 MEQ TABLET.ER (FP) PO ONE (04:36)
[2021-09-05 04:57] VITALS: TEMP 101
[2021-09-05] MEDS ORDERED: POTASSIUM PHOSPHATE 30 MM in DEXTROSE 5%-WATER - 500 ML IVPB ONE (05:30)
[2021-09-05] MEDS: FENTANYL PATCH WASTE TD PRN (05:30)
[2021-09-05] MEDS: fentaNYL 100mcg/hr PATCH.TD72 TD SCH (05:33)
[2021-09-05 09:42] VITALS: BP 98/66; PULSE 108
[2021-09-05] MEDS ORDERED: CHLORHEXIDINE GLUCONATE 4% CLEANSER FOR DECOLONIZATION TP SCH (22:00)
== END 2021-09-05 06:35 | disposition expired | DRG 240 ==
LOC: JER 11:58 → JERBED 12:30 → J6S 17:53 → J7W 18:35 → J4S 09-05 04:42
PROVIDERS: ADMIT Internal Medicine; ATTEND Internal Medicine
PROC: 0JP Subcutaneous Tissue and Fascia, Removal (ICD-10-PCS; principal; 2021-08-29)
PROC: 0BH17EZ Insertion of Endotracheal Airway into Trachea, Via Natural or Artificial Opening (ICD-10-PCS; 2021-09-05)
PROC: 5A1935Z Respiratory Ventilation, Less than 24 Consecutive Hours (ICD-10-PCS; 2021-09-05)
PROC: 5A12012 Performance of Cardiac Output, Single, Manual (ICD-10-PCS; 2021-09-05)
DX: C16.9 Malignant neoplasm of stomach, unspecified (principal); A41.9 Sepsis, unspecified organism; J18.9 Pneumonia, unspecified organism; K56.609 Unspecified intestinal obstruction, unspecified as to partial versus complete obstruction; T80.219A Unspecified infection due to central venous catheter, initial encounter; B49 Unspecified mycosis; I95.89 Other hypotension; K72.90 Hepatic failure, unspecified without coma; R64 Cachexia; E46 Unspecified protein-calorie malnutrition; E86.1 Hypovolemia; R62.7 Adult failure to thrive; E87.1 Hypo-osmolality and hyponatremia; Y83.9 Surgical procedure, unspecified as the cause of abnormal reaction of the patient, or of later complication, without mention of misadventure at the time of the procedure; I46.9 Cardiac arrest, cause unspecified
CPT/HCPCS: 36415; 71260-TC; 74177-TC; 76700-TC; 80053; 82962; 83605; 83735; 84100; 85025; 85027; 85384; 85610; 85730; 86705; 87040; 87070; 87106; 87186; 87205; 87305; 87340; 87449; 87517; 93005; 93010; 93306-TC; 99285-25; C9803; J0637; J2469; Q5117; Q9967; U0003; U0005